=== PATIENT | female | born 1965 | race Caucasian/White ===

== ENCOUNTER 2016-05-10 17:15 | Inpatient (IN) | payer OTHER ==
[~2016-05-10] VITALS: Ht 167.6 cm; Wt 68.0 kg
[~2016-05-10 17:15] MED LIST: ALBU6.7H INH; DUONI NEB; GABA100C4 PO; IBUP800T23 PO; LEVO750T33 PO; MELO15 PO; METH4TAB6 PO
[2016-05-10 17:20] VITALS: RESP 38; O2SAT 100
[2016-05-10 17:22] VITALS: BP 205/91; PULSE 99; RESP 38; TEMP 98.3; O2SAT 95
[2016-05-10] MEDS ORDERED: methylPREDNISolone SOD SUCC 125 MG/2 ML VIAL IVP ONE (17:30)
[2016-05-10] MEDS ORDERED: SODIUM CHLORIDE 0.9% FLUSH 5 ML FLUSH IVF PRN (17:30)
[2016-05-10] MEDS: RESP: ALBUTEROL 2.5 MG/IPRATROPIUM 0.5 MG NEB (SCH) INH (17:33)
[2016-05-10 17:45] VITALS: O2SAT 100
--- NOTE | 2016-05-10 18:12 | PD ---
HPI Chief Complaint: Respiratory Distress Time Seen by Provider: 17:25 Travel History International Travel<30 days: No Contact w/Intl Traveler<30days: No Traveled to known affect area: No History of Present Illness HPI 51-year-old female came to the emergency room with history of shortness of breath progressively worsening over past 2 days. Patient is a smoker and recently had a trip to [place]. She has been told that she has COPD but patient did not take any inhalers for the shortness of breath. No history of fever or chills. Patient was tachypneic but oxygenating okay. She was hypertensive and seemed extremely anxious. [facility] Past Medical History Narrative Medical List of her past medical history is reviewed from the nursing note. Arthritis: Yes Asthma: Yes Blood Disorders: No Anxiety: No Depression: No Cancer: No Cardiovascular Problems: No Cerebrovascular Accident: Yes (history tia LAST ONE 2 YEARS AGO) Diminished Hearing: No Endocrine: No Genitourinary: Yes Immune Disorder: No Musculoskeletal: Yes (CHRONIC BACK PAIN) Neurologic: Yes Psychiatric: No Reproductive: No Respiratory: Yes ?: Not Menopausal: Yes Past Surgical History Appendectomy: Yes Hysterectomy: Yes Other Surgery: Yes (neck surgery AND BACK SURGERY) Social History Alcohol Use: Yes (SOCIAL) Tobacco Use: Yes (PPD) Substance Use: No Allergies-Medications (Allergen,Severity, Reaction): Coded Allergies: No Known Allergies (Verified , 05/10/16) Comments No known drug allergies. Reported Meds & Prescriptions Reported Meds & Active Scripts Active No Active Prescriptions or Reported Medications Narrative Medication List of her home medications reviewed from the nursing note. Review of Systems Except as stated in HPI: all other systems reviewed are Neg Physical Exam Narrative GENERAL: Awake, alert, anxious, moderate distress SKIN: Warm and dry. HEAD: Atraumatic. Normocephalic. EYES: Pupils equal and round. No scleral icterus. No injection or drainage. ENT: No nasal bleeding or discharge. Mucous membranes pink and moist. NECK: Trachea midline. No JVD. CARDIOVASCULAR: Regular rate and rhythm. No murmur appreciated. RESPIRATORY: No accessory muscle use. Bilateral end expiratory wheeze GASTROINTESTINAL: Abdomen soft, non-tender, nondistended. Hepatic and splenic margins not palpable. MUSCULOSKELETAL: No obvious deformities. No clubbing. No cyanosis. No edema. NEUROLOGICAL: Awake and alert. No obvious cranial nerve deficits. Motor grossly within normal limits. Normal speech. PSYCHIATRIC: Extremely anxious Data Data Last Documented VS Vital Signs Date Time Temp Pulse Resp B/P Pulse Ox O2 Delivery O2 Flow Rate FiO2 05/10/16 17:45 100 Nasal Cannula 2.00 05/10/16 17:22 98.3 99 38 205/91 Orders Complete Blood Count With Diff (05/10/16 17:25) Basic Metabolic Panel (Bmp) (05/10/16 17:25) B-Type Natriuretic Peptide (05/10/16 17:25) Magnesium (Mg) (05/10/16 17:25) Ckmb (Isoenzyme) Profile (05/10/16 17:25) Troponin I (05/10/16 17:25) Iv Access Insert/Monitor (05/10/16 17:25) Ecg Monitoring (05/10/16 17:25) Oximetry (05/10/16 17:25) Oxygen Administration (05/10/16 17:25) Chest, Single Ap (05/10/16 17:25) Sodium Chloride 0.9% Flush (Ns Flush) (05/10/16 17:30) Methylprednisolone So Succ Inj (Solumedr (05/10/16 17:30) Albuterol-Ipratropium Neb (Duoneb Neb) (05/10/16 17:30) Arterial Blood Gas (Abg) (05/10/16 ) Lorazepam Inj (Ativan Inj) (05/10/16 18:30) Drug Screen, Random Urine (05/10/16 18:17) Ct Pulmonary Angiogram (05/10/16 ) CKMB (05/10/16 18:21) CKMB% (05/10/16 18:21) Iohexol 350 Inj (Omnipaque 350 Inj) (05/10/16 21:54) Levofloxacin 750 Mg Premix Inj (Levaquin (05/10/16 22:30) Admit Order (Ed Use Only) (05/10/16 22:26) Labs Laboratory Tests Test 05/10/16 05/10/16 05/10/16 17:35 18:21 18:51 Blood Gas Puncture Site RT RADIAL Blood Gas Patient Temperature 98.6 Blood Gas HCO3 18 mmol/L Blood Gas Base Excess -2.7 mmol/L Blood Gas Oxygen Saturation 94 % Arterial Blood pH 7.69 Arterial Blood Partial 15 mmHg Pressure CO2 Arterial Blood Partial 80 mmHG Pressure O2 Arterial Blood Oxygen Content 19.4 Vol % Arterial Blood 2.5 % Carboxyhemoglobin Arterial Blood Methemoglobin 1.7 % Blood Gas Hemoglobin 14.6 G/DL Oxygen Delivery Device NASAL CANNULA Blood Gas Liter Flow 2 L/M White Blood Count 16.8 TH/MM3 Red Blood Count 4.50 MIL/MM3 Hemoglobin 14.0 GM/DL Hematocrit 41.2 % Mean Corpuscular Volume 91.6 FL Mean Corpuscular Hemoglobin 31.2 PG Mean Corpuscular Hemoglobin 34.0 % Concent Red Cell Distribution Width 12.8 % Platelet Count 287 TH/MM3 Mean Platelet Volume 7.0 FL Neutrophils (%) (Auto) 73.7 % Lymphocytes (%) (Auto) 19.1 % Monocytes (%) (Auto) 6.6 % Eosinophils (%) (Auto) 0.3 % Basophils (%) (Auto) 0.3 % Neutrophils # (Auto) 12.4 TH/MM3 Lymphocytes # (Auto) 3.2 TH/MM3 Monocytes # (Auto) 1.1 TH/MM3 Eosinophils # (Auto) 0.0 TH/MM3 Basophils # (Auto) 0.1 TH/MM3 CBC Comment DIFF FINAL Differential Comment Sodium Level 137 MEQ/L Potassium Level 3.9 MEQ/L Chloride Level 104 MEQ/L Carbon Dioxide Level 21.4 MEQ/L Anion Gap 12 MEQ/L Blood Urea Nitrogen 13 MG/DL Creatinine 0.99 MG/DL Estimat Glomerular Filtration 59 ML/MIN Rate Random Glucose 88 MG/DL Calcium Level 10.1 MG/DL Magnesium Level 2.0 MG/DL Total Creatine Kinase 171 U/L Creatine Kinase MB LESS THAN 0.5 NG/ML Troponin I LESS THAN 0.02 NG/ML B-Type Natriuretic Peptide 8 PG/ML Urine Opiates Screen NEG Urine Barbiturates Screen NEG Urine Amphetamines Screen NEG Urine Benzodiazepines Screen NEG Urine Cocaine Screen NEG Urine Cannabinoids Screen NEG MDM Medical Decision Making Medical Screen Exam Complete: Yes Emergency Medical Condition: Yes Medical Record Reviewed: Yes Differential Diagnosis COPD exacerbation, PE, pneumonia Narrative Course 6:11 PM patient was given 3 duo nebs [id number], IV Solu-Medrol bolus. Blood gas is suggestive of respiratory alkalosis and hyperventilation. Awaiting for the blood test results and chest x-ray. I will give her 1 mg of IV Ativan and urine drug screen as needed in addition. 7:20 PM awaiting for the blood test result and the CAT scan. Case has been signed over to the oncoming ER physician. Critical Care Narrative Aggregate critical care time was 30 minutes. Time to perform other separately billable procedures was not included in the critical care time. My time did not include minutes spent treating any other patients simultaneously or on activities that did not directly contribute to the patient's treatment. The services I provided to this patient were to treat and/or prevent clinically significant deterioration that could result in: Respiratory distress I provided critical care services requiring my management, as noted below: Chart data review, documentation time, medication orders and management, vital sign assessments/reviewing monitor data, ordering and reviewing lab tests, ordering and interpreting/reviewing x-rays and diagnostic studies, care of the patient and discussion of the patient with the admitting physicians. Procedures EKG Prior to Arrival: No Diagnosis Primary Impression: Respiratory distress Additional Impression: Acute exacerbation of COPD with asthma Scripts No Active Prescriptions or Reported Meds Jayden Schneider MD May 10, 2016 18:12
[2016-05-10 18:13] LABS: BLOOD GAS BASE EXCESS -2.7 mmol/L (-2-2); BLOOD GAS CARBOXYHEMOGLOBIN 2.5 % (0-4); BLOOD GAS HCO3 18 mmol/L (22-26); BLOOD GAS METHEMOGLOBIN 1.7 % (0-2); BLOOD GAS O2 HGB SATURATION 94 % (90-100); BLOOD GAS OXYGEN CONTENT 19.4 Vol % (12.0-20.0); BLOOD GAS PCO2 15 mmHg (38-42); BLOOD GAS PO2 80 mmHG (61-120); BLOOD GAS TOTAL HGB 14.6 G/DL (12.0-16.0); TEMP CORR TO 98.6
[2016-05-10 18:14] LABS: CRITICAL VALUE YES; DRAW SITE RT RADIAL; LITER FLOW 2 L/M; NUMBER OF ARTERIAL PUNCTURES 1; OXYGEN DEVICE NASAL CANNULA; STAT YES; ULNAR PULSE Y
--- NOTE | 2016-05-10 18:19 | RADRPT ---
EXAM DATE/TIME: 05/10/2016 17:54 [facility] COMPARISON: No previous studies available for comparison. INDICATIONS : Shortness of breath for 1 week MEDICAL HISTORY : None. SURGICAL HISTORY : None. ENCOUNTER: Initial ACUITY: 1 week PAIN SCORE: 0/10 LOCATION: Bilateral chest FINDINGS: A single view of the chest demonstrates the lungs to be symmetrically aerated without evidence of mas s, infiltrate or effusion. The cardiomediastinal contours are unremarkable. Osseous structures are intact. CONCLUSION: No acute disease. Nathan Weems MD on May 10, 2016 at 18:18 Board Certified Radiologist. This report was verified electronically.
[2016-05-10] MEDS ORDERED: LORazepam 2 MG/ML VIAL IV PUSH ONE (18:30)
[2016-05-10 18:43] LABS: AUTOMATED NEUTROPHIL # 12.4 TH/MM3 (1.8-7.7); BASOPHIL # 0.1 TH/MM3 (0-0.2); BASOPHIL % 0.3 % (0.0-2.0); EOSINOPHIL % 0.3 % (0.0-4.0); HEMATOCRIT 41.2 % (35.0-46.0); HEMO FLAGS DIFF FINAL; LYMPH % 19.1 % (9.0-44.0); LYMPHOCYTE # 3.2 TH/MM3 (1.0-4.8); MEAN CELL VOLUME 91.6 FL (80.0-100.0); MEAN CORPUSCULAR HEMOGLOBIN 31.2 PG (27.0-34.0); MONO % 6.6 % (0.0-8.0); NEUT % 73.7 % (16.0-70.0); PLATELET COUNT 287 TH/MM3 (150-450); RED CELL DISTRIBUTION WIDTH 12.8 % (11.6-17.2); WHITE BLOOD COUNT 16.8 TH/MM3 (4.0-11.0)
[2016-05-10 19:05] LABS: ANION GAP 12 MEQ/L (5-15); BICARBONATE 21.4 MEQ/L (21.0-32.0); BLOOD UREA NITROGEN 13 MG/DL (7-18); CHLORIDE 104 MEQ/L (98-107); CREATINE KINASE 171 U/L (26-192); GLOMERULAR FILTRATION RATE 59 ML/MIN (>89); SODIUM (NA) 137 MEQ/L (136-145)
[2016-05-10 19:08] LABS: POTASSIUM 3.9 MEQ/L (3.5-5.1)
[2016-05-10 19:20] LABS: CKMB LESS THAN 0.5 NG/ML (0.5-3.6)
[2016-05-10 19:24] LABS: AMPHETAMINE, URINE NEG (NEG); BARBITURATES, URINE NEG (NEG); COCAINE, URINE NEG (NEG)
[2016-05-10] MEDS ORDERED: IOHEXOL 350 MG/ML 10 ML VIAL (for RAD DIAG) IV ONE (21:54)
--- NOTE | 2016-05-10 22:07 | RADRPT ---
EXAM DATE/TIME: 05/10/2016 21:49 [facility] COMPARISON: CHEST SINGLE AP, May 10, 2016, 17:54. INDICATIONS : Chest pain and SOB. IV CONTRAST: 50 cc Omnipaque 350 (iohexol) IV RADIATION DOSE: 6.04 CTDIvol (mGy) MEDICAL HISTORY : Cerebrovascular disease. SURGICAL HISTORY : Appendectomy. Hysterectomy. ENCOUNTER: Initial ACUITY: 1 week PAIN SCALE: 5/10 LOCATION: chest TECHNIQUE: Volumetric scanning of the chest was performed using a pulmonary embolism protocol MIP images were re constructed. Using automated exposure control and adjustment of the mA and/or kV according to patien t size, radiation dose was kept as low as reasonably achievable to obtain optimal diagnostic quality images. FINDINGS: Calcified granuloma left upper lobe posteriorly measuring 3.1 mm. There are scattered tiny cavitary l esions with surrounding groundglass infiltrates within both upper lobes, patchy groundglass cavitary infiltrate in the lingula and right middle lobe, and respiratory motion artifact limits evaluation of the lower lobes. There is right hilar adenopathy, subcarinal adenopathy up to 1.4 cm and mildly prom inent left hilar lymph node. There is no definite evidence of pulmonary embolism the evaluation of th e lower lobes subsegmental branches is limited secondary to motion artifact. There are numerous cysti c air spaces within the upper lobes identified. CONCLUSION: 1. No definite PE. 2. Scattered cavitary infiltrates bilaterally Nathan Weems MD on May 10, 2016 at 22:02 Board Certified Radiologist. This report was verified electronically.
[2016-05-10] MEDS ORDERED: NALOXONE HCL 0.4 MG/ML AMP IV PRN (22:30)
[2016-05-10] MEDS ORDERED: LEVOFLOXACIN 750 MG PREMIX INJ 150 ML IV ONE (22:30)
[2016-05-10] MEDS ORDERED: RESP: ALBUTEROL 2.5 MG/IPRATROPIUM 0.5 MG NEB (PRN) NEB (22:30)
[2016-05-10] MEDS ORDERED: SODIUM CHLORIDE 0.9% FLUSH 5 ML FLUSH FLUSH PRN (22:30)
--- NOTE | 2016-05-10 23:10 | PD ---
Physical Exam Narrative GENERAL: Well-nourished, well-developed patient. SKIN: Warm and dry. HEAD: Normocephalic and atraumatic. EYES: No injection or drainage. ENT: No nasal drainage noted. NECK: Supple, trachea midline. CARDIOVASCULAR: Regular rate and rhythm RESPIRATORY: Mild increased effort. No accessory muscle use. NEUROLOGICAL: Awake and alert. Motor and sensory grossly within normal limits. Normal speech. Data Data Last Documented VS Vital Signs Date Time Temp Pulse Resp B/P Pulse Ox O2 Delivery O2 Flow Rate FiO2 05/10/16 17:45 100 Nasal Cannula 2.00 05/10/16 17:22 98.3 99 38 205/91 Orders Complete Blood Count With Diff (05/10/16 17:25) Basic Metabolic Panel (Bmp) (05/10/16 17:25) B-Type Natriuretic Peptide (05/10/16 17:25) Magnesium (Mg) (05/10/16 17:25) Ckmb (Isoenzyme) Profile (05/10/16 17:25) Troponin I (05/10/16 17:25) Iv Access Insert/Monitor (05/10/16 17:25) Ecg Monitoring (05/10/16 17:25) Oximetry (05/10/16 17:25) Oxygen Administration (05/10/16 17:25) Chest, Single Ap (05/10/16 17:25) Sodium Chloride 0.9% Flush (Ns Flush) (05/10/16 17:30) Methylprednisolone So Succ Inj (Solumedr (05/10/16 17:30) Albuterol-Ipratropium Neb (Duoneb Neb) (05/10/16 17:30) Arterial Blood Gas (Abg) (05/10/16 ) Lorazepam Inj (Ativan Inj) (05/10/16 18:30) Drug Screen, Random Urine (05/10/16 18:17) Ct Pulmonary Angiogram (05/10/16 ) CKMB (05/10/16 18:21) CKMB% (05/10/16 18:21) Iohexol 350 Inj (Omnipaque 350 Inj) (05/10/16 21:54) Levofloxacin 750 Mg Premix Inj (Levaquin (05/10/16 22:30) Admit Order (Ed Use Only) (05/10/16 22:26) Labs Laboratory Tests Test 05/10/16 05/10/16 05/10/16 17:35 18:21 18:51 Blood Gas Puncture Site RT RADIAL Blood Gas Patient Temperature 98.6 Blood Gas HCO3 18 mmol/L Blood Gas Base Excess -2.7 mmol/L Blood Gas Oxygen Saturation 94 % Arterial Blood pH 7.69 Arterial Blood Partial 15 mmHg Pressure CO2 Arterial Blood Partial 80 mmHG Pressure O2 Arterial Blood Oxygen Content 19.4 Vol % Arterial Blood 2.5 % Carboxyhemoglobin Arterial Blood Methemoglobin 1.7 % Blood Gas Hemoglobin 14.6 G/DL Oxygen Delivery Device NASAL CANNULA Blood Gas Liter Flow 2 L/M White Blood Count 16.8 TH/MM3 Red Blood Count 4.50 MIL/MM3 Hemoglobin 14.0 GM/DL Hematocrit 41.2 % Mean Corpuscular Volume 91.6 FL Mean Corpuscular Hemoglobin 31.2 PG Mean Corpuscular Hemoglobin 34.0 % Concent Red Cell Distribution Width 12.8 % Platelet Count 287 TH/MM3 Mean Platelet Volume 7.0 FL Neutrophils (%) (Auto) 73.7 % Lymphocytes (%) (Auto) 19.1 % Monocytes (%) (Auto) 6.6 % Eosinophils (%) (Auto) 0.3 % Basophils (%) (Auto) 0.3 % Neutrophils # (Auto) 12.4 TH/MM3 Lymphocytes # (Auto) 3.2 TH/MM3 Monocytes # (Auto) 1.1 TH/MM3 Eosinophils # (Auto) 0.0 TH/MM3 Basophils # (Auto) 0.1 TH/MM3 CBC Comment DIFF FINAL Differential Comment Sodium Level 137 MEQ/L Potassium Level 3.9 MEQ/L Chloride Level 104 MEQ/L Carbon Dioxide Level 21.4 MEQ/L Anion Gap 12 MEQ/L Blood Urea Nitrogen 13 MG/DL Creatinine 0.99 MG/DL Estimat Glomerular Filtration 59 ML/MIN Rate Random Glucose 88 MG/DL Calcium Level 10.1 MG/DL Magnesium Level 2.0 MG/DL Total Creatine Kinase 171 U/L Creatine Kinase MB LESS THAN 0.5 NG/ML Troponin I LESS THAN 0.02 NG/ML B-Type Natriuretic Peptide 8 PG/ML Urine Opiates Screen NEG Urine Barbiturates Screen NEG Urine Amphetamines Screen NEG Urine Benzodiazepines Screen NEG Urine Cocaine Screen NEG Urine Cannabinoids Screen NEG MDM Supervised Visit with TEJA: No Interpretation(s) CBC & BMP Diagram 05/10/16 18:21 Last 24 hours Impressions Chest X-Ray 05/10/16 1725 Signed Impressions: Service Date/Time: Tuesday, May 10, 2016 17:54 - CONCLUSION: No acute disease. Nathan Weems MD CT Angiography 05/10/16 0000 Signed Impressions: Service Date/Time: Tuesday, May 10, 2016 21:49 - CONCLUSION: 1. No definite PE. 2. Scattered cavitary infiltrates bilaterally Nathan Weems MD Narrative Course Signed over to me to follow CAT scan and reevaluate. CT with bilateral infiltrates. Levaquin given. Patient agrees to admission Physician Communication Physician Communication dr franks agrees to admit Diagnosis Primary Impression: Respiratory distress Additional Impressions: Acute exacerbation of COPD with asthma Upper respiratory infection Qualified Code: J06.9 - Upper respiratory tract infection, unspecified type Admitting Information Admitting Physician Requests: Admit Scripts No Active Prescriptions or Reported Meds Lisa Sawyer MD May 10, 2016 23:10
[2016-05-10 23:27] VITALS: BP 95/65; PULSE 89; RESP 18; O2SAT 94
[2016-05-11] VITALS (9 sets, daily range): BP systolic 101–118; BP diastolic 56–71; PULSE 76–88; RESP 18–22; TEMP 97.7–99; O2SAT 93–98
[2016-05-11] MEDS ORDERED: cloNIDine HCL 0.1 MG TAB PO PRN (02:15)
[2016-05-11 05:25] LABS: AUTOMATED NEUTROPHIL # 9.4 TH/MM3 (1.8-7.7); BASOPHIL % 0.1 % (0.0-2.0); HEMATOCRIT 37.6 % (35.0-46.0); HEMO FLAGS DIFF FINAL; LYMPH % 7.7 % (9.0-44.0); LYMPHOCYTE # 0.8 TH/MM3 (1.0-4.8); MEAN CELL VOLUME 90.6 FL (80.0-100.0); MEAN CORPUSCULAR HEMOGLOBIN 31.1 PG (27.0-34.0); MEAN CORPUSCULAR HGB CONC 34.3 % (32.0-36.0); MONO % 1.9 % (0.0-8.0); NEUT % 90.3 % (16.0-70.0); PLATELET COUNT 301 TH/MM3 (150-450); RED BLOOD COUNT 4.15 MIL/MM3 (4.00-5.30); WHITE BLOOD COUNT 10.4 TH/MM3 (4.0-11.0)
[2016-05-11 05:51] LABS: POTASSIUM 4.2 MEQ/L (3.5-5.1)
[2016-05-11] MEDS ORDERED: methylPREDNISolone SOD SUCC 40 MG/1 ML VIAL IV PUSH SCH (06:00)
[2016-05-11] MEDS: PANTOPRAZOLE SOD 40 MG DELAYED RELEASE TAB PO SCH (08:10)
[2016-05-11] MEDS: SODIUM CHLORIDE 0.9% FLUSH 5 ML FLUSH FLUSH SCH ×2 (08:10→20:42)
[2016-05-11] MEDS: ENOXAPARIN SODIUM 40 MG/0.4 ML SYRINGE SQ SCH (08:10)
--- NOTE | 2016-05-11 09:33 | HHI.HP ---
HPI Service [facility] Hospitalists Primary Care Physician No Primary Care Physician Admission Diagnosis asthma exacerbation, pneumonia Diagnoses: Chief Complaint: sob/cough Travel History International Travel<30 Days: No Contact w/Intl Traveler <30 Da: No Traveled to Known Affected Are: No Sepsis Criteria SIRS Criteria (2 or more): Heart rate over 90, RR > 20 or PaCO2 < 32, WBC > 18657, < 4000 or > 10% bands Sepsis Criteria (SIRS+source): Infect source susp/known Criteria Outcome: Meets sepsis criteria History of Present Illness This is a 51-year-old female with past medical history significant for asthma, chronic back pain, tobacco abuse who presents to [facility] complaining of worsening shortness of breath and cough for the past week. The patient states that she recently came back from [place] from visiting family and became very short of breath up to the point where she could not breathe. The patient also states that she has a cough which has been initially dry and now slightly productive which has been also getting worst throughout the days. Patient states all her symptoms started prior to visiting [place]. The patient denies fevers or chills but she admits to feeling hot and cold and having sweats. Denies any weight loss, denies hemoptysis, denies diarrhea but states she always has loose stools. Patient also complains of abdominal pain localized in the gastric region which is worst when she coughs. The patient was seen in the emergency department and given Solu-Medrol 125 mg IV once as well as DuoNeb treatments. Patient states she is still coughing frequently and very wheezy but shortness of breath has improved. Review of Systems Other As per history of present illness, other systems reviewed by me and negative Past Family Social History Past Medical History 1. Osteoarthritis. 2. Asthma. 3. History of multiple TIAs, last one 2 years ago 4. Chronic back pain Past Surgical History 1. Appendectomy. 2. Hysterectomy. 3. Status post facet block lumbar/sacral L5, S1. LVL left 08/19/10. 4. Status post left L5-S1 microdiscectomy on 09/14/09 Reported Medications None Allergies: Coded Allergies: No Known Allergies (Verified , 05/10/16) Active Ordered Medications Current Medications Medications (Trade) Dose Ordered Sig/Sarah Route Start Time Stop Time Status Last Admin (NS Flush) 2 ml UNSCH PRN FLUSH 05/10/16 22:30 (NS Flush) 2 ml BID FLUSH 05/11/16 09:00 05/11/16 08:10 (Lovenox Inj) 40 mg Q24H SQ 05/11/16 09:00 05/11/16 08:10 Naloxone HCl 0.4 mg 0.4 mg UNSCH PRN IV 05/10/16 22:30 (Levaquin 750 Mg Premix Inj) 150 ml @ 100 mls/hr Q24H IV 05/11/16 22:00 (SoluMEDROL INJ) 40 mg Q6HR IV PUSH 05/11/16 06:00 05/11/16 04:33 (Protonix) 40 mg DAILY PO 05/11/16 09:00 05/11/16 08:10 (Pneumovax-23 Inj) 25 mcg ONCE ONCE IM 05/12/16 10:00 05/12/16 10:01 (Flu (Quadrivalent) Vaccine Inj) 0.5 ml ONCE ONCE IM 05/12/16 10:00 05/12/16 10:01 Family History Since father from complications of diabetes and metastatic cancer from unknown primary at age 84. Patient's brother has hypertension and diabetes. Patient's mother has end-stage COPD. Social History Patient states she drinks alcohol occasionally on social occasions. Patient smoked one pack per day. Physical Exam Vital Signs Vital Signs Date Time Temp Pulse Resp B/P Pulse Ox O2 Delivery O2 Flow Rate FiO2 05/11/16 04:00 99.0 76 20 110/62 93 05/11/16 02:10 86 05/11/16 00:00 98.8 82 22 101/56 94 05/10/16 23:27 89 18 95/65 94 Nasal Cannula 2 05/10/16 17:45 100 Nasal Cannula 2.00 05/10/16 17:22 98.3 99 38 205/91 95 05/10/16 17:20 100 Nasal Cannula 2 05/10/16 17:20 38 100 Nasal Cannula 2 Physical Exam GENERAL: This is a thin, well-developed patient, in mild respiratory distress due to cough and wheezing. SKIN: No rashes, ecchymoses or lesions. Cool and dry. HEAD: Atraumatic. Normocephalic. No temporal or scalp tenderness. EYES: Pupils equal round and reactive. Extraocular motions intact. No scleral icterus. No injection or drainage. ENT: Nose without bleeding, purulent drainage or septal hematoma. Throat without erythema, tonsillar hypertrophy or exudate. Uvula midline. Airway patent. NECK: Trachea midline. No JVD or lymphadenopathy. Supple, nontender, no meningeal signs. CARDIOVASCULAR: Regular rate and rhythm without murmurs, gallops, or rubs. RESPIRATORY: There is bilateral diffuse expiratory wheezing. Some rhonchi auscultated bilaterally as well. No rales. GASTROINTESTINAL: Abdomen soft, non-tender, nondistended. No hepato-splenomegaly , or palpable masses. No guarding. MUSCULOSKELETAL: Extremities without clubbing, cyanosis, or edema. No joint tenderness, effusion, or edema noted. No calf tenderness. Negative Homans sign bilaterally. NEUROLOGICAL: Awake and alert. Cranial nerves II through XII intact. Motor and sensory grossly within normal limits. Five out of 5 muscle strength in all muscle groups. Normal speech. Laboratory Laboratory Tests Test 05/10/16 05/10/16 05/10/16 05/11/16 17:35 18:21 18:51 05:02 Blood Gas Puncture Site RT RADIAL Blood Gas Patient Temperature 98.6 Blood Gas HCO3 18 Blood Gas Base Excess -2.7 Blood Gas Oxygen Saturation 94 Arterial Blood pH 7.69 Arterial Blood Partial 15 Pressure CO2 Arterial Blood Partial 80 Pressure O2 Arterial Blood Oxygen Content 19.4 Arterial Blood 2.5 Carboxyhemoglobin Arterial Blood Methemoglobin 1.7 Blood Gas Hemoglobin 14.6 Oxygen Delivery Device NASAL CANNULA Blood Gas Liter Flow 2 White Blood Count 16.8 10.4 Red Blood Count 4.50 4.15 Hemoglobin 14.0 12.9 Hematocrit 41.2 37.6 Mean Corpuscular Volume 91.6 90.6 Mean Corpuscular Hemoglobin 31.2 31.1 Mean Corpuscular Hemoglobin 34.0 34.3 Concent Red Cell Distribution Width 12.8 13.0 Platelet Count 287 301 Mean Platelet Volume 7.0 7.1 Neutrophils (%) (Auto) 73.7 90.3 Lymphocytes (%) (Auto) 19.1 7.7 Monocytes (%) (Auto) 6.6 1.9 Eosinophils (%) (Auto) 0.3 0.0 Basophils (%) (Auto) 0.3 0.1 Neutrophils # (Auto) 12.4 9.4 Lymphocytes # (Auto) 3.2 0.8 Monocytes # (Auto) 1.1 0.2 Eosinophils # (Auto) 0.0 0.0 Basophils # (Auto) 0.1 0.0 CBC Comment DIFF FINAL DIFF FINAL Differential Comment Sodium Level 137 137 Potassium Level 3.9 4.2 Chloride Level 104 105 Carbon Dioxide Level 21.4 23.0 Anion Gap 12 9 Blood Urea Nitrogen 13 11 Creatinine 0.99 0.79 Estimat Glomerular Filtration 59 76 Rate Random Glucose 88 123 Calcium Level 10.1 9.4 Magnesium Level 2.0 Total Creatine Kinase 171 Creatine Kinase MB LESS THAN 0.5 Troponin I LESS THAN 0.02 B-Type Natriuretic Peptide 8 Urine Opiates Screen NEG Urine Barbiturates Screen NEG Urine Amphetamines Screen NEG Urine Benzodiazepines Screen NEG Urine Cocaine Screen NEG Urine Cannabinoids Screen NEG Result Diagram: 05/11/16 0502 05/11/16 0502 Imaging Last Impressions Chest X-Ray 05/10/16 1725 Signed Impressions: Service Date/Time: Tuesday, May 10, 2016 17:54 - CONCLUSION: No acute disease. Nathan Weems MD CT Angiography 05/10/16 0000 Signed Impressions: Service Date/Time: Tuesday, May 10, 2016 21:49 - CONCLUSION: 1. No definite PE. 2. Scattered cavitary infiltrates bilaterally Nathan Weems MD Reviewed by ok Septic Shock Reassessment Heart: Regular rate and rhythm Lungs: Other (diffuse bilateral wheezing, scattered ronchi) Skin: Warm Peripheral Pulses: Bounding Right Radial Bounding Left Radial Bounding Left Dorsalis Pedis Bounding Right Posterior Tibial Capillary Refill: <2 seconds Assessment and Plan Problem List: (1) Acute exacerbation of COPD with asthma ICD Code: J44.1 Status: Acute Plan: 49-year-old female with history of tobacco abuse presents with worsening shortness of breath and cough. Chest x-ray did not show any infiltrates, CTA ruled out PE but showed some cavitary infiltrates. On exam the patient has diffuse expiratory wheezing bilaterally. Admit the patient to the medical floor. Continue IV Solu-Medrol at 60 mg IV every 6 hours. Continue bronchodilators. I will start the patient on inhaled steroids. I will Rx Robitussin-DM for cough. (2) PNA (pneumonia) ICD Code: J18.9 Status: Acute Plan: Place on IV antibioticscontinue IV Levaquin. Check Legionella urine antigen, pneumococcal urine antigen. (3) Sepsis ICD Code: A41.9 Status: Acute Plan: Present on admission. On presentation to the emergency department patient had a leukocytosis of 16,000, respiratory rate of 20 and heart rate in the 100s. I will place the patient on IV normal saline. Continue to monitor vital signs, WBC. (4) Leukocytosis ICD Code: D72.829 Status: Acute Plan: WBC 16,000 on presentation, trending down. Continue to monitor CBC with differential. Elevated likely secondary to sepsis due to COPD exacerbation/ pneumonia. (5) Respiratory distress ICD Code: R06.00 Status: Acute Plan: Due to COPD exacerbation/pneumonia. Respiratory distress much improved. Patient still with significant cough and wheezing. Continue to monitor vital signs and O2 sats. (6) Hyperglycemia ICD Code: R73.9 Status: Acute Plan: Likely steroid-induced. Blood glucose on presentation was 88, now 123. Check hemoglobin A1c. I will place the patient on SSI with insulin NovoLog. (7) Chronic back pain ICD Code: M54.9 Status: Acute Plan: Patient has history of neck and back surgery. Complains of back pain which is chronic. I will place the patient on Tylenol and Lortab as needed. Assessment and Plan GI prophylaxis: PPI DVT prophylaxis: SCDs, Lovenox subcutaneous. Code Status Full code Discussed Condition With RN, patient Physician Certification 2 Midnight Certification Type: Admission for Inpatient Services Order for Inpatient Services The services are ordered in accordance with Medicare regulations or non- Medicare payer requirements, as applicable. In the case of services not specified as inpatient-only, they are appropriately provided as inpatient services in accordance with the 2-midnight benchmark. Estimated LOS (days): 2 days is the estimated time the patient will need to remain in the hospital, assuming treatment plan goals are met and no additional complications. Post-Hospital Plan: Not yet determined Problem Qualifiers (1) PNA (pneumonia): Qualified Code: J18.9 - Pneumonia of both lungs due to infectious organism, unspecified part of lung (2) Sepsis: Qualified Code: A41.9 - Sepsis, due to unspecified organism (3) Leukocytosis: Qualified Code: D72.829 - Leukocytosis, unspecified type (4) Chronic back pain: Qualified Code: M54.5 - Chronic midline low back pain without sciatica Dylan Tomlinson MD May 11, 2016 09:33
[2016-05-11] MEDS: RESP: ALBUTEROL 2.5 MG/IPRATROPIUM 0.5 MG NEB (SCH) NEB ×3 (10:08→21:12)
[2016-05-11] MEDS ORDERED: ACETAMINOPHEN/HYDROcodone 325 MG/5 MG TAB PO PRN (10:30)
[2016-05-11] MEDS: SODIUM CHLOR 0.9% 1000 ML INJ 1,000 ML IV SCH ×2 (11:25→22:25)
[2016-05-11] MEDS: methylPREDNISolone SOD SUCC 125 MG/2 ML VIAL IV PUSH SCH ×3 (11:25→22:24)
[2016-05-11] MEDS: guaiFENesin/DEXTROMETHORPHAN 200 MG/20 MG/10 ML CUP PO PRN ×3 (13:56→22:24)
[2016-05-11 14:26] LABS: LACTIC ACID GHOST NOT REPORTABLE
--- NOTE | 2016-05-11 19:06 | MB ---
cc: TALITA ADAN MD DATE OF CONSULTATION: 05/11/[address] Rodriguez REASON FOR CONSULTATION COPD exacerbation. HISTORY OF PRESENT ILLNESS Ms. Elizalde is a 51-year-old white female with longstanding history of COPD. She has not been using any medication. She was prescribed a nebulizer machine a few years ago, but she has stopped using it. She has history of smoking, continues to smoke one pack of cigarettes a day. The patient recently went to [place] and she had contact with family members who were sick. She came back. She was feeling more short of breath. In fact, she is not feeling well for one week. She has a cough, mild nausea. No fever or chills. No chest pain. With these symptoms, she came to the hospital. She had a workup done. She had a CTA of the chest done which does not show any pulmonary embolism. It shows scattered cavitary infiltrates bilaterally. Her WBC count is 10.84, hemoglobin 12.9, hematocrit 37.6, MCV 90, platelet count 301, sodium 137, potassium 4.2, chloride 105, CO2 23, BUN 11, creatinine 0.79, lactic acid level 2.4, blood gas - pH 7.69, pCO2 15, pO2 80, bicarb 18, saturation 98% on 2 liters nasal cannula. Blood cultures so far are negative. Influenza antigen is negative. Legionella and pneumococcal urine antigen are negative. PAST MEDICAL HISTORY 1. History of chronic back pain and neck pain 2. History of COPD. 3. History of hysterectomy, 4. Appendectomy. MEDICATIONS She is not taking medication at home. Currently she is taking 1. Nicotine patch. 2. Levaquin 750 mg a day. 3. Symbicort 160/4.5 two puffs twice a day, 4. Solu-Medrol 60 mg q 6-hour. 5. Robitussin DM cough syrup 10 mL q. 4-hour. 6. Lovenox 40 mg a day 7. Protonix 40 mg a day 8. Albuterol Atrovent nebulizer treatment. ALLERGIES NO KNOWN DRUG ALLERGIES. SOCIAL HISTORY She has a long history of smoking since age 12 and continues to smoke more than one pack of cigarettes a day. She drinks 2-3 times a week. No drug use. 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 FAMILY HISTORY She is for the second time now for six years. She has one daughter. REVIEW OF SYSTEMS She denies any weight loss. Normally she is active. No headache or dizziness. No DVT or pulmonary embolism, no seizure, stroke or epilepsy. PHYSICAL EXAMINATION GENERAL: Well built, well-nourished female mildly short of breath and discomfort because of persistent cough. VITAL SIGNS: Blood pressure 108/65, heart rate 81, respirations 20, temperature 97.7 HEENT: Pupils are equal and reactive to light. Oral mucosa normal. No thrush. NECK: Supple. No jugular venous distention. CHEST: Air entry equal bilaterally. Bilateral expiratory rhonchi. CARDIOVASCULAR: S1, S2 normal. ABDOMEN: Soft, nondistended. Bowel sounds are present EXTREMITIES: No edema. CARDIAC SURGEON: Alert and oriented times three, no focal deficit. IMPRESSION 1. COPD exacerbation 2. Pneumonia 3. Nicotine use 4. Anxiety. 5. Chronic back pain. PLAN We will check her cultures. Continue antibiotic. Aerosol treatment with albuterol and Atrovent, IV Solu-Medrol, supplement her oxygen. Advised her to quit smoking. Once she gets better, we will check her pulmonary function study. Further treatment will depend on the course in the hospital. Thank you Dr. Rodriguez for this consultation. MD YONG Bolaños/ /5:29 PM /6:52 PM
[2016-05-11] MEDS: BUDESONIDE-FORMOTEROL 160/4.5 MCG INHALER INH SCH (20:40)
[2016-05-11] MEDS: LEVOFLOXACIN 750 MG PREMIX INJ 150 ML IV SCH (20:41)
[2016-05-12] VITALS (9 sets, daily range): BP systolic 108–136; BP diastolic 56–72; PULSE 84–92; RESP 20–22; TEMP 96.7–98.8; O2SAT 94–98
[2016-05-12] MEDS: RESP: ALBUTEROL 2.5 MG/IPRATROPIUM 0.5 MG NEB (SCH) NEB ×4 (03:52→22:19)
[2016-05-12] MEDS: guaiFENesin/DEXTROMETHORPHAN 200 MG/20 MG/10 ML CUP PO PRN (05:49)
[2016-05-12] MEDS: methylPREDNISolone SOD SUCC 125 MG/2 ML VIAL IV PUSH SCH ×4 (05:50→21:09)
[2016-05-12] MEDS: REMOVE OLD PATCH TD SCH (08:08)
[2016-05-12] MEDS: PANTOPRAZOLE SOD 40 MG DELAYED RELEASE TAB PO SCH (08:08)
[2016-05-12] MEDS: NICOTINE 21 MG/24 HR PATCH TD SCH (08:08)
[2016-05-12] MEDS: SODIUM CHLORIDE 0.9% FLUSH 5 ML FLUSH FLUSH SCH ×2 (08:08→21:07)
[2016-05-12] MEDS: ENOXAPARIN SODIUM 40 MG/0.4 ML SYRINGE SQ SCH (08:09)
[2016-05-12] MEDS: BUDESONIDE-FORMOTEROL 160/4.5 MCG INHALER INH SCH ×2 (08:10→21:07)
[2016-05-12] MEDS: BENZONATATE 100 MG CAP PO PRN ×2 (09:54→21:09)
[2016-05-12] MEDS ORDERED: INFLUENZA VIRUS VACCINE (QUADRIVALENT) 0.5 ML SYR IM ONE (10:00)
[2016-05-12] MEDS ORDERED: PNEUMOCOCCAL POLYVALENT INJ 25 MCG/0.5 ML SYR IM ONE (10:00)
[2016-05-12 10:42] LABS: AUTOMATED NEUTROPHIL # 17.4 TH/MM3 (1.8-7.7); BASOPHIL % 0.1 % (0.0-2.0); HEMATOCRIT 35.3 % (35.0-46.0); HEMO FLAGS DIFF FINAL; LYMPH % 3.4 % (9.0-44.0); LYMPHOCYTE # 0.6 TH/MM3 (1.0-4.8); MEAN CELL VOLUME 90.8 FL (80.0-100.0); MEAN CORPUSCULAR HEMOGLOBIN 31.2 PG (27.0-34.0); MEAN CORPUSCULAR HGB CONC 34.4 % (32.0-36.0); MONO % 3.4 % (0.0-8.0); NEUT % 93.1 % (16.0-70.0); PLATELET COUNT 320 TH/MM3 (150-450); RED BLOOD COUNT 3.88 MIL/MM3 (4.00-5.30); RED CELL DISTRIBUTION WIDTH 12.9 % (11.6-17.2); WHITE BLOOD COUNT 18.7 TH/MM3 (4.0-11.0)
[2016-05-12 10:59] LABS: ALKALINE PHOSPHATASE 76 U/L (45-117); ALT (GPT) 25 U/L (10-53); ANION GAP 14 MEQ/L (5-15); AST (GOT) 18 U/L (15-37); BICARBONATE 20.1 MEQ/L (21.0-32.0); BLOOD UREA NITROGEN 9 MG/DL (7-18); CHLORIDE 107 MEQ/L (98-107); GLOMERULAR FILTRATION RATE 61 ML/MIN (>89); POTASSIUM 3.3 MEQ/L (3.5-5.1); SODIUM (NA) 141 MEQ/L (136-145); TOTAL BILIRUBIN ADULT 0.3 MG/DL (0.2-1.0)
[2016-05-12] MEDS: SODIUM CHLOR 0.9% 1000 ML INJ 1,000 ML IV SCH ×3 (11:26→21:07)
--- NOTE | 2016-05-12 11:44 | HHI.PR ---
Subjective Remarks Patient states she does not feel good still coughing states sob is somewhat improved denies cp (+) BERMAN denies fevers/chills feels very anxious Objective Vitals Vital Signs Date Time Temp Pulse Resp B/P Pulse Ox O2 Delivery O2 Flow Rate FiO2 05/12/16 09:20 94 Nasal Cannula 2.00 05/12/16 08:00 98.6 92 22 108/56 94 05/12/16 04:00 98.8 88 20 118/72 96 05/12/16 00:00 98.0 86 20 114/68 97 05/11/16 20:00 98.2 85 20 114/68 96 05/11/16 16:00 98.4 84 20 116/68 94 05/11/16 15:46 98 21 05/11/16 12:00 98.2 88 18 118/71 93 I/O 05/11/16 05/11/16 05/11/16 05/12/16 05/12/16 05/12/16 07:00 15:00 23:00 07:00 15:00 23:00 Intake Total 420 ml 1375 ml 700 ml 240 ml Output Total 300 ml 1000 ml 450 ml Balance 120 ml 375 ml 700 ml -210 ml Intake Oral 220 ml 1200 ml 240 ml IV Total 200 ml 175 ml 700 ml Output Urine Total 300 ml 1000 ml 450 ml # Bowel Movements 0 0 0 Result Diagram: 05/12/16 1030 05/12/16 1030 Imaging Last Impressions Chest X-Ray 05/10/16 1725 Signed Impressions: Service Date/Time: Tuesday, May 10, 2016 17:54 - CONCLUSION: No acute disease. Nathan Weems MD CT Angiography 05/10/16 0000 Signed Impressions: Service Date/Time: Tuesday, May 10, 2016 21:49 - CONCLUSION: 1. No definite PE. 2. Scattered cavitary infiltrates bilaterally Nathan Weems MD Objective Remarks GENERAL: This is a thin, well-developed patient, in mild respiratory distress due to cough and wheezing. SKIN: No rashes, ecchymoses or lesions. Cool and dry. HEAD: Atraumatic. Normocephalic. No temporal or scalp tenderness. EYES: Pupils equal round and reactive. Extraocular motions intact. No scleral icterus. No injection or drainage. ENT: Nose without bleeding, purulent drainage or septal hematoma. Throat without erythema, tonsillar hypertrophy or exudate. Uvula midline. Airway patent. NECK: Trachea midline. No JVD or lymphadenopathy. Supple, nontender, no meningeal signs. CARDIOVASCULAR: Regular rate and rhythm without murmurs, gallops, or rubs. RESPIRATORY: There is bilateral diffuse expiratory wheezing. Some rhonchi auscultated bilaterally as well. No rales. GASTROINTESTINAL: Abdomen soft, non-tender, nondistended. No hepato-splenomegaly , or palpable masses. No guarding. MUSCULOSKELETAL: Extremities without clubbing, cyanosis, or edema. No joint tenderness, effusion, or edema noted. No calf tenderness. Negative Homans sign bilaterally. NEUROLOGICAL: Awake and alert. Cranial nerves II through XII intact. Motor and sensory grossly within normal limits. Five out of 5 muscle strength in all muscle groups. Normal speech. Medications and IVs Current Medications Medications (Trade) Dose Ordered Sig/Sarah Route Start Time Stop Time Status Last Admin (NS Flush) 2 ml UNSCH PRN FLUSH 05/10/16 22:30 (NS Flush) 2 ml BID FLUSH 05/11/16 09:00 05/12/16 08:08 (Lovenox Inj) 40 mg Q24H SQ 05/11/16 09:00 05/12/16 08:09 Naloxone HCl 0.4 mg 0.4 mg UNSCH PRN IV 05/10/16 22:30 (Levaquin 750 Mg Premix Inj) 150 ml @ 100 mls/hr Q24H IV 05/11/16 22:00 05/11/16 20:41 (Protonix) 40 mg DAILY PO 05/11/16 09:00 05/12/16 08:08 (SoluMEDROL INJ) 60 mg Q6HR IV PUSH 05/11/16 12:00 05/12/16 05:50 (Robitussin Dm 200-20 Mg/10 ml Liq) 10 ml Q4H PRN PO 05/11/16 10:30 05/12/16 05:49 ([place] 5-325 Mg) 1 tab Q4H PRN PO 05/11/16 10:30 Acetaminophen/ Hydrocodone Bitart 1 tab 1 tab Q4H PRN PO 05/11/16 10:30 (NS 1000 ml Inj) 1,000 ml @ 125 mls/hr Q8H IV 05/11/16 10:32 05/11/16 22:25 (Habitrol 21 Mg Patch.24 Hr) 1 patch DAILY TD 05/12/16 09:00 05/12/16 08:08 Miscellaneous Information 1 DAILY TD 05/12/16 09:00 (Symbicort 160-4.5 Inh) 1 puff Q12HR INH 05/11/16 21:00 05/12/16 08:10 (Tessalon) 100 mg TID PRN PO 05/12/16 09:45 05/12/16 09:54 A/P Problem List: (1) Acute exacerbation of COPD with asthma ICD Code: J44.1 Status: Acute Plan: 49-year-old female with history of tobacco abuse presents with worsening shortness of breath and cough. Chest x-ray did not show any infiltrates, CTA ruled out PE but showed some cavitary infiltrates. On exam the patient has diffuse Patient is to the medical floor expiratory wheezing improving Continue bronchodilators. Continue steroids. Continue Robitussin-DM and I will Rx Tessalon Perles for cough if Robitussin-DM ineffective. Decrease Solu-Medrol to 40 mg IV every 8 hours. Appreciate pulmonary recommendations (2) PNA (pneumonia) ICD Code: J18.9 Status: Acute Plan: Continue IV Levaquin Legionella urine antigen and pneumococcal urine antigen negative Continue supplemental oxygen (3) Sepsis ICD Code: A41.9 Status: Acute Plan: Present on admission. On presentation to the emergency department patient had a leukocytosis of 16,000, respiratory rate of 20 and heart rate in the 100s. I will place the patient on IV normal saline. Continue to monitor vital signs, WBC. 05/12 patient with worsening leukocytosis. Lactic acid level up to 5. I will start the patient on IV vancomycin and increase IV fluids to 150 mL per hour. (4) Leukocytosis ICD Code: D72.829 Status: Acute Plan: WBC 16,000 on presentation, trending down. Continue to monitor CBC with differential. Elevated likely secondary to sepsis due to COPD exacerbation/ pneumonia. 05/12 WBC trending up up to 18,000. Continue to monitor CBC with differential. (5) Respiratory distress ICD Code: R06.00 Status: Resolved Plan: Due to COPD exacerbation/pneumonia. Respiratory distress much improved. Patient still with significant cough and wheezing. Continue to monitor vital signs and O2 sats. (6) Hyperglycemia ICD Code: R73.9 Status: Acute Plan: Likely steroid-induced. Blood glucose on presentation was 88, now 123. Check hemoglobin A1c. I will place the patient on SSI with insulin NovoLog. (7) Chronic back pain ICD Code: M54.9 Status: Acute Plan: Patient has history of neck and back surgery. Complains of back pain which is chronic. Continue Tylenol and Lortab as needed. Problem Qualifiers (1) PNA (pneumonia): Qualified Code: J18.9 - Pneumonia of both lungs due to infectious organism, unspecified part of lung (2) Sepsis: Qualified Code: A41.9 - Sepsis, due to unspecified organism (3) Leukocytosis: Qualified Code: D72.829 - Leukocytosis, unspecified type (4) Chronic back pain: Qualified Code: M54.5 - Chronic midline low back pain without sciatica Dylan Tomlinson MD May 12, 2016 11:44
[2016-05-12] MEDS ORDERED: Vancomycin Consult Pharmacy 1 EA OTHER SCH (11:45)
[2016-05-12] MEDS ORDERED: VANCOMYCIN INJ 900 MG in SODIUM CHLOR 0.9% 250 ML INJ 250 ML IV SCH (11:45)
[2016-05-12] MEDS ORDERED: POTASSIUM CHLORIDE 10 MEQ CONTROLLED RELEASE TAB PO ONE (11:45)
[2016-05-12] MEDS: VANCOMYCIN 1,000 MG/NS 250 ML IV SCH ×2 (12:15)
[2016-05-12 12:34] LABS: LACTIC ACID GHOST NOT REPORTABLE
[2016-05-12] MEDS: ACETAMINOPHEN/HYDROcodone 325 MG/7.5 MG TAB PO PRN (17:52)
--- NOTE | 2016-05-12 19:53 | HHI.PR ---
Subjective Remarks 51 YOWF with COPD exac, Pn, Nicotine use Has cough, small amount of sp No Fever Wheezing improving Objective Vital Signs Vital Signs Date Time Temp Pulse Resp B/P Pulse Ox O2 Delivery O2 Flow Rate FiO2 05/12/16 16:00 97.9 90 22 114/71 95 05/12/16 12:00 96.7 89 22 136/69 97 05/12/16 09:20 94 Nasal Cannula 2.00 05/12/16 08:00 98.6 92 22 108/56 94 05/12/16 04:00 98.8 88 20 118/72 96 05/12/16 00:00 98.0 86 20 114/68 97 05/11/16 20:00 98.2 85 20 114/68 96 I/O 05/11/16 05/11/16 05/11/16 05/12/16 05/12/16 05/12/16 07:00 15:00 23:00 07:00 15:00 23:00 Intake Total 420 ml 1375 ml 700 ml 240 ml 2028 ml Output Total 300 ml 1000 ml 450 ml 300 ml Balance 120 ml 375 ml 700 ml -210 ml 1728 ml Intake Oral 220 ml 1200 ml 240 ml 480 ml IV Total 200 ml 175 ml 700 ml 1548 ml Output Urine Total 300 ml 1000 ml 450 ml 300 ml # Bowel Movements 0 0 0 0 Result Diagram: 05/12/16 1030 05/12/16 1030 Objective Remarks GENERAL: MBMN WF, mild SOB SKIN: Warm and dry. HEAD: Normocephalic. EYES: No scleral icterus. No injection or drainage. NECK: Supple, trachea midline. No JVD or lymphadenopathy. CARDIOVASCULAR: Regular rate and rhythm without murmurs, gallops, or rubs. RESPIRATORY: Breath sounds equal bilaterally. No accessory muscle use. Exp rhonchi GASTROINTESTINAL: Abdomen soft, non-tender, nondistended. MUSCULOSKELETAL: No cyanosis, or edema. BACK: Nontender without obvious deformity. No CVA tenderness. A/P Assessment and Plan COPD Exac Pneumonia Persistant cough Ch back pain Anxiety Nicotine use PLAN:: Cont Abx IV Solumedrol Aerosol nebs Robitussin DM cough syp Tessalon Jimmy Koo MD May 12, 2016 19:53
[2016-05-12] MEDS: LEVOFLOXACIN 750 MG PREMIX INJ 150 ML IV SCH (21:08)
[2016-05-12] MEDS: ALPRAZolam 0.5 MG TAB PO PRN (21:09)
[2016-05-13] VITALS (9 sets, daily range): BP systolic 119–160; BP diastolic 66–88; PULSE 61–93; RESP 16–20; TEMP 96.1–97.9; O2SAT 94–97
[2016-05-13] MEDS: VANCOMYCIN 1,000 MG/NS 250 ML IV SCH ×4 (00:20→12:01)
[2016-05-13] MEDS: guaiFENesin/DEXTROMETHORPHAN 200 MG/20 MG/10 ML CUP PO PRN ×3 (00:20→22:03)
[2016-05-13] MEDS: ACETAMINOPHEN/HYDROcodone 325 MG/7.5 MG TAB PO PRN ×4 (00:20→19:47)
[2016-05-13] MEDS: RESP: ALBUTEROL 2.5 MG/IPRATROPIUM 0.5 MG NEB (SCH) NEB ×4 (03:47→19:22)
[2016-05-13] MEDS: methylPREDNISolone SOD SUCC 125 MG/2 ML VIAL IV PUSH SCH ×3 (05:07→22:03)
[2016-05-13] MEDS: SODIUM CHLOR 0.9% 1000 ML INJ 1,000 ML IV SCH ×3 (05:07→19:45)
[2016-05-13] MEDS: BENZONATATE 100 MG CAP PO PRN ×3 (05:08→19:47)
[2016-05-13 05:12] LABS: AUTOMATED NEUTROPHIL # 12.8 TH/MM3 (1.8-7.7); BASOPHIL % 0.1 % (0.0-2.0); LYMPH % 5.5 % (9.0-44.0); LYMPHOCYTE # 0.8 TH/MM3 (1.0-4.8); MEAN CORPUSCULAR HEMOGLOBIN 30.3 PG (27.0-34.0); MEAN CORPUSCULAR HGB CONC 33.3 % (32.0-36.0); MONO % 4.2 % (0.0-8.0); NEUT % 90.2 % (16.0-70.0); PLATELET COUNT 301 TH/MM3 (150-450); RED BLOOD COUNT 3.63 MIL/MM3 (4.00-5.30); WHITE BLOOD COUNT 14.3 TH/MM3 (4.0-11.0)
[2016-05-13 05:25] LABS: HEMO FLAGS AUTO DIFF
[2016-05-13 05:40] LABS: ALKALINE PHOSPHATASE 76 U/L (45-117); ALT (GPT) 46 U/L (10-53); ANION GAP 11 MEQ/L (5-15); AST (GOT) 44 U/L (15-37); BICARBONATE 24.1 MEQ/L (21.0-32.0); BLOOD UREA NITROGEN 10 MG/DL (7-18); CHLORIDE 109 MEQ/L (98-107); GLOMERULAR FILTRATION RATE 91 ML/MIN (>89); POTASSIUM 4.1 MEQ/L (3.5-5.1); SODIUM (NA) 144 MEQ/L (136-145); TOTAL BILIRUBIN ADULT 0.3 MG/DL (0.2-1.0)
[2016-05-13] MEDS: NICOTINE 21 MG/24 HR PATCH TD SCH (08:08)
[2016-05-13] MEDS: ENOXAPARIN SODIUM 40 MG/0.4 ML SYRINGE SQ SCH (08:09)
[2016-05-13] MEDS: PANTOPRAZOLE SOD 40 MG DELAYED RELEASE TAB PO SCH (08:10)
[2016-05-13] MEDS: ALPRAZolam 0.5 MG TAB PO PRN ×2 (08:10→22:03)
[2016-05-13] MEDS: REMOVE OLD PATCH TD SCH (08:10)
[2016-05-13] MEDS: BUDESONIDE-FORMOTEROL 160/4.5 MCG INHALER INH SCH ×2 (08:13→19:44)
[2016-05-13] MEDS: SODIUM CHLORIDE 0.9% FLUSH 5 ML FLUSH FLUSH SCH ×2 (08:14→19:45)
[2016-05-13 09:06] LABS: BANDS 18 % (0-6); PLATELET ESTIMATE SMEAR NORMAL (NORMAL); POLYS (SEG NEUTROPHILS) 73 % (16-70); WBC DIFF SAMPLE 100
[2016-05-13 09:07] LABS: PLATELET MORPHOLOGY NORMAL (NORMAL); SCAN/DIFF FINAL DIFF MANUAL
--- NOTE | 2016-05-13 16:26 | HHI.PR ---
Subjective Remarks 51 YOWF with COPD exac, Pn, Nicotine use Has cough, small amount of sp No Fever Wheezing improving Soreness of chest due to cough Did't sleep well Objective Vital Signs Vital Signs Date Time Temp Pulse Resp B/P Pulse Ox O2 Delivery O2 Flow Rate FiO2 05/13/16 16:00 97.8 84 16 128/78 94 05/13/16 12:00 97.6 82 17 132/79 95 05/13/16 08:00 97.9 93 17 119/66 95 05/13/16 07:43 97 05/13/16 04:00 96.1 74 20 144/88 97 05/13/16 00:00 97.7 81 20 148/72 94 05/12/16 22:19 98 Nasal Cannula 05/12/16 20:23 84 05/12/16 20:00 97.7 86 20 131/71 96 I/O 05/12/16 05/12/16 05/12/16 05/13/16 05/13/16 05/13/16 07:00 15:00 23:00 07:00 15:00 23:00 Intake Total 240 ml 2028 ml 945 ml 1455 ml 1578 ml Output Total 450 ml 300 ml 400 ml 900 ml 800 ml Balance -210 ml 1728 ml 545 ml 555 ml 778 ml Intake Oral 240 ml 480 ml 120 ml 480 ml 480 ml IV Total 1548 ml 825 ml 975 ml 1098 ml Output Urine Total 450 ml 300 ml 400 ml 900 ml 800 ml # Bowel Movements 0 0 Result Diagram: 05/13/1634505/13/16345 Objective Remarks GENERAL: MBMN WF, mild SOB SKIN: Warm and dry. HEAD: Normocephalic. EYES: No scleral icterus. No injection or drainage. NECK: Supple, trachea midline. No JVD or lymphadenopathy. CARDIOVASCULAR: Regular rate and rhythm without murmurs, gallops, or rubs. RESPIRATORY: Breath sounds equal bilaterally. No accessory muscle use. Exp rhonchi GASTROINTESTINAL: Abdomen soft, non-tender, nondistended. MUSCULOSKELETAL: No cyanosis, or edema. BACK: Nontender without obvious deformity. No CVA tenderness. A/P Assessment and Plan COPD Exac Pneumonia Persistant cough Ch back pain Anxiety Nicotine use PLAN:: Cont Abx IV Solumedrol Aerosol nebs Robitussin DM cough syp Tessalon Tid OOB And Ambulate Jimmy Reilly MD May 13, 2016 16:26
--- NOTE | 2016-05-13 17:26 | HHI.PR ---
Subjective Remarks sob better cough better denies fevers chills anxiety improved stable vital signs Objective Vitals Vital Signs Date Time Temp Pulse Resp B/P Pulse Ox O2 Delivery O2 Flow Rate FiO2 05/13/16 16:00 97.8 84 16 128/78 94 05/13/16 12:00 97.6 82 17 132/79 95 05/13/16 08:00 97.9 93 17 119/66 95 05/13/16 07:43 97 05/13/16 04:00 96.1 74 20 144/88 97 05/13/16 00:00 97.7 81 20 148/72 94 05/12/16 22:19 98 Nasal Cannula 05/12/16 20:23 84 05/12/16 20:00 97.7 86 20 131/71 96 I/O 05/12/16 05/12/16 05/12/16 05/13/16 05/13/16 05/13/16 07:00 15:00 23:00 07:00 15:00 23:00 Intake Total 240 ml 2028 ml 945 ml 1455 ml 1578 ml Output Total 450 ml 300 ml 400 ml 900 ml 800 ml Balance -210 ml 1728 ml 545 ml 555 ml 778 ml Intake Oral 240 ml 480 ml 120 ml 480 ml 480 ml IV Total 1548 ml 825 ml 975 ml 1098 ml Output Urine Total 450 ml 300 ml 400 ml 900 ml 800 ml # Bowel Movements 0 0 Result Diagram: 05/13/16 0346 05/13/16 0346 Imaging Last Impressions Chest X-Ray 05/10/16 1725 Signed Impressions: Service Date/Time: Tuesday, May 10, 2016 17:54 - CONCLUSION: No acute disease. Nathan Weems MD CT Angiography 05/10/16 0000 Signed Impressions: Service Date/Time: Tuesday, May 10, 2016 21:49 - CONCLUSION: 1. No definite PE. 2. Scattered cavitary infiltrates bilaterally Nathan Weems MD Objective Remarks GENERAL: This is a thin, well-developed patient, in mild respiratory distress due to cough and wheezing. SKIN: No rashes, ecchymoses or lesions. Cool and dry. HEAD: Atraumatic. Normocephalic. No temporal or scalp tenderness. EYES: Pupils equal round and reactive. Extraocular motions intact. No scleral icterus. No injection or drainage. ENT: Nose without bleeding, purulent drainage or septal hematoma. Throat without erythema, tonsillar hypertrophy or exudate. Uvula midline. Airway patent. NECK: Trachea midline. No JVD or lymphadenopathy. Supple, nontender, no meningeal signs. CARDIOVASCULAR: Regular rate and rhythm without murmurs, gallops, or rubs. RESPIRATORY: There is bilateral diffuse expiratory wheezing. Some rhonchi auscultated bilaterally as well. No rales. GASTROINTESTINAL: Abdomen soft, non-tender, nondistended. No hepato-splenomegaly , or palpable masses. No guarding. MUSCULOSKELETAL: Extremities without clubbing, cyanosis, or edema. No joint tenderness, effusion, or edema noted. No calf tenderness. Negative Homans sign bilaterally. NEUROLOGICAL: Awake and alert. Cranial nerves II through XII intact. Motor and sensory grossly within normal limits. Five out of 5 muscle strength in all muscle groups. Normal speech. Medications and IVs Current Medications Medications (Trade) Dose Ordered Sig/Sarah Route Start Time Stop Time Status Last Admin (NS Flush) 2 ml UNSCH PRN FLUSH 05/10/16 22:30 (NS Flush) 2 ml BID FLUSH 05/11/16 09:00 05/13/16 08:14 (Lovenox Inj) 40 mg Q24H SQ 05/11/16 09:00 05/13/16 08:09 Naloxone HCl 0.4 mg 0.4 mg UNSCH PRN IV 05/10/16 22:30 (Levaquin 750 Mg Premix Inj) 150 ml @ 100 mls/hr Q24H IV 05/11/16 22:00 05/12/16 21:08 (Protonix) 40 mg DAILY PO 05/11/16 09:00 05/13/16 08:10 (Robitussin Dm 200-20 Mg/10 ml Liq) 10 ml Q4H PRN PO 05/11/16 10:30 05/13/16 08:09 ([place] 5-325 Mg) 1 tab Q4H PRN PO 05/11/16 10:30 Acetaminophen/ Hydrocodone Bitart 1 tab 1 tab Q4H PRN PO 05/11/16 10:30 05/13/16 12:07 (NS 1000 ml Inj) 1,000 ml @ 150 mls/hr Q6H40M IV 05/11/16 10:32 05/13/16 12:04 (Habitrol 21 Mg Patch.24 Hr) 1 patch DAILY TD 05/12/16 09:00 05/13/16 08:08 Miscellaneous Information 1 DAILY TD 05/12/16 09:00 05/13/16 08:10 (Symbicort 160-4.5 Inh) 1 puff Q12HR INH 05/11/16 21:00 05/13/16 08:13 Benzonatate 100 mg 100 mg TID PRN PO 05/12/16 09:45 05/13/16 12:07 (Vancomycin Consult Pharmacy) 0 ml @ 0 mls/hr UNSCH OTHER 05/12/16 11:45 (Xanax) 0.5 mg Q8H PRN PO 05/12/16 12:00 05/13/16 08:10 Methylprednisolone Sodium Succinate 40 mg 40 mg Q8HR IV PUSH 05/12/16 14:00 05/13/16 12:01 (Vancomycin Inj/ NS 250 ml Inj) 250 ml @ 250 mls/hr Q12H IV 05/12/16 13:00 05/13/16 12:01 Miscellaneous Information SPECIFIC LAB TO BE DRAWN:VANCOMYCIN TROUGH DATE TO... ONCE ONCE XX 05/14/16 12:45 05/14/16 12:46 Urinary Catheter: No Vascular Central Line Catheter: No A/P Problem List: (1) Acute exacerbation of COPD with asthma ICD Code: J44.1 Status: Acute Plan: 49-year-old female with history of tobacco abuse presents with worsening shortness of breath and cough. Chest x-ray did not show any infiltrates, CTA ruled out PE but showed some cavitary infiltrates. On exam the patient has diffuse Patient is to the medical floor expiratory wheezing improving Continue bronchodilators. Continue steroids. Continue Robitussin-DM and I will Rx Tessalon Perles for cough if Robitussin-DM ineffective. Decrease Solu-Medrol to 40 mg IV every12 hours Appreciate pulmonary recommendations (2) PNA (pneumonia) ICD Code: J18.9 Status: Acute Plan: Continue IV Levaquin Legionella urine antigen and pneumococcal urine antigen negative Continue supplemental oxygen (3) Sepsis ICD Code: A41.9 Status: Acute Plan: Present on admission. On presentation to the emergency department patient had a leukocytosis of 16,000, respiratory rate of 20 and heart rate in the 100s. I will place the patient on IV normal saline. Continue to monitor vital signs, WBC. 05/12 patient with worsening leukocytosis. Lactic acid level up to 5. 05/13 leukocytosis is improving, lactic acid trending down. Continue IV fluids. (4) Leukocytosis ICD Code: D72.829 Status: Acute Plan: WBC 16,000 on presentation, trending down. Continue to monitor CBC with differential. Elevated likely secondary to sepsis due to COPD exacerbation/ pneumonia. 05/12 WBC trending up up to 18,000. Continue to monitor CBC with differential. 05/13 leukocytosis trending down. Continue IV antibiotics as above. (5) Respiratory distress ICD Code: R06.00 Status: Resolved Plan: Due to COPD exacerbation/pneumonia. Cough and wheezing much improved. (6) Hyperglycemia ICD Code: R73.9 Status: Acute Plan: Likely steroid-induced. Blood glucose on presentation was 88, now 123. Check hemoglobin A1c. I will place the patient on SSI with insulin NovoLog. (7) Chronic back pain ICD Code: M54.9 Status: Acute Plan: Patient has history of neck and back surgery. Complains of back pain which is chronic. Continue Tylenol and Lortab as needed. Problem Qualifiers (1) PNA (pneumonia): Qualified Code: J18.9 - Pneumonia of both lungs due to infectious organism, unspecified part of lung (2) Sepsis: Qualified Code: A41.9 - Sepsis, due to unspecified organism (3) Leukocytosis: Qualified Code: D72.829 - Leukocytosis, unspecified type (4) Chronic back pain: Qualified Code: M54.5 - Chronic midline low back pain without sciatica Dylan Tomlinson MD May 13, 2016 17:26
[2016-05-13] MEDS: LEVOFLOXACIN 750 MG PREMIX INJ 150 ML IV SCH (19:45)
[2016-05-14] VITALS (11 sets, daily range): BP systolic 126–175; BP diastolic 68–94; PULSE 50–72; RESP 18–22; TEMP 95.4–98.4; O2SAT 95–97
[2016-05-14] MEDS: VANCOMYCIN 1,000 MG/NS 250 ML IV SCH ×2 (00:55)
[2016-05-14] MEDS: ACETAMINOPHEN/HYDROcodone 325 MG/7.5 MG TAB PO PRN ×6 (00:55→23:11)
[2016-05-14] MEDS: BENZONATATE 100 MG CAP PO PRN ×3 (03:29→18:36)
[2016-05-14] MEDS: guaiFENesin/DEXTROMETHORPHAN 200 MG/20 MG/10 ML CUP PO PRN ×3 (03:29→18:37)
[2016-05-14] MEDS: SODIUM CHLOR 0.9% 1000 ML INJ 1,000 ML IV SCH ×4 (03:30→20:11)
[2016-05-14] MEDS: RESP: ALBUTEROL 2.5 MG/IPRATROPIUM 0.5 MG NEB (SCH) NEB ×4 (04:04→22:15)
[2016-05-14] MEDS: methylPREDNISolone SOD SUCC 125 MG/2 ML VIAL IV PUSH SCH (05:38)
[2016-05-14] MEDS: NICOTINE 21 MG/24 HR PATCH TD SCH (07:54)
[2016-05-14] MEDS: ENOXAPARIN SODIUM 40 MG/0.4 ML SYRINGE SQ SCH (07:55)
[2016-05-14] MEDS: BUDESONIDE-FORMOTEROL 160/4.5 MCG INHALER INH SCH ×2 (07:55→20:08)
[2016-05-14] MEDS: SODIUM CHLORIDE 0.9% FLUSH 5 ML FLUSH FLUSH SCH ×2 (07:55→20:08)
[2016-05-14] MEDS: ALPRAZolam 0.5 MG TAB PO PRN ×2 (07:55→18:33)
[2016-05-14] MEDS: PANTOPRAZOLE SOD 40 MG DELAYED RELEASE TAB PO SCH (07:55)
[2016-05-14] MEDS: REMOVE OLD PATCH TD SCH (07:56)
[2016-05-14] MEDS ORDERED: ENALAPRILAT 1.25 MG/ML VIAL IV PUSH PRN (10:30)
[2016-05-14 11:17] LABS: AUTOMATED NEUTROPHIL # 9.3 TH/MM3 (1.8-7.7); BASOPHIL % 0.1 % (0.0-2.0); HEMATOCRIT 35.2 % (35.0-46.0); LYMPH % 5.9 % (9.0-44.0); LYMPHOCYTE # 0.6 TH/MM3 (1.0-4.8); MEAN CELL VOLUME 91.4 FL (80.0-100.0); MEAN CORPUSCULAR HEMOGLOBIN 30.5 PG (27.0-34.0); MEAN CORPUSCULAR HGB CONC 33.4 % (32.0-36.0); MONO % 3.6 % (0.0-8.0); NEUT % 90.4 % (16.0-70.0); PLATELET COUNT 334 TH/MM3 (150-450); RED BLOOD COUNT 3.85 MIL/MM3 (4.00-5.30); WHITE BLOOD COUNT 10.3 TH/MM3 (4.0-11.0)
[2016-05-14 11:18] LABS: HEMO FLAGS AUTO DIFF
[2016-05-14 11:43] LABS: ANION GAP 11 MEQ/L (5-15); AST (GOT) 48 U/L (15-37); BICARBONATE 23.1 MEQ/L (21.0-32.0); BLOOD UREA NITROGEN 9 MG/DL (7-18); CHLORIDE 108 MEQ/L (98-107); GLOMERULAR FILTRATION RATE 65 ML/MIN (>89); POTASSIUM 3.5 MEQ/L (3.5-5.1); SODIUM (NA) 142 MEQ/L (136-145)
[2016-05-14 11:47] LABS: ALKALINE PHOSPHATASE 70 U/L (45-117); ALT (GPT) 84 U/L (10-53); TOTAL BILIRUBIN ADULT 0.4 MG/DL (0.2-1.0)
[2016-05-14 11:57] LABS: BANDS 18 % (0-6); METAMYELOCYTES 2 % (0-1); MYELOCYTES 2 % (0-0); PLATELET ESTIMATE SMEAR NORMAL (NORMAL); PLATELET MORPHOLOGY NORMAL (NORMAL); POLYS (SEG NEUTROPHILS) 65 % (16-70); SCAN/DIFF FINAL DIFF MANUAL; WBC DIFF SAMPLE 100
[2016-05-14] MEDS ORDERED: PHARMACY ORDERED LAB XX ONE (12:45)
[2016-05-14] MEDS ORDERED: SODIUM CHLOR 0.9% 1000 ML INJ 1,000 ML IV ONE (13:00)
--- NOTE | 2016-05-14 14:13 | HHI.PR ---
Subjective Remarks 51 YOWF with COPD exac, Pn, Nicotine use Has cough, small amount of sp No Fever Wheezing improving Soreness of chest due to cough Has cough, not able to expactorate Objective Vital Signs Vital Signs Date Time Temp Pulse Resp B/P Pulse Ox O2 Delivery O2 Flow Rate FiO2 05/14/16 11:30 97.4 65 19 142/71 96 05/14/16 10:51 175/94 05/14/16 08:50 96 05/14/16 08:00 98.4 68 18 174/77 95 05/14/16 04:00 95.4 56 20 162/73 97 05/14/16 00:00 96.1 63 20 170/78 95 05/13/16 20:00 96.2 61 20 160/87 95 05/13/16 19:44 84 05/13/16 19:22 97 21 05/13/16 16:00 97.8 84 16 128/78 94 I/O 05/13/16 05/13/16 05/13/16 05/14/16 05/14/16 05/14/16 07:00 15:00 23:00 07:00 15:00 23:00 Intake Total 1455 ml 1578 ml 1485 ml 1490 ml 1080 ml Output Total 900 ml 800 ml 700 ml 900 ml 600 ml Balance 555 ml 778 ml 785 ml 590 ml 480 ml Intake Oral 480 ml 480 ml 480 ml 480 ml 1080 ml IV Total 975 ml 1098 ml 1005 ml 1010 ml Output Urine Total 900 ml 800 ml 700 ml 900 ml 600 ml # Bowel Movements 0 Result Diagram: 05/14/16 1106 05/14/16 1106 Objective Remarks GENERAL: MBMN WF, mild SOB SKIN: Warm and dry. HEAD: Normocephalic. EYES: No scleral icterus. No injection or drainage. NECK: Supple, trachea midline. No JVD or lymphadenopathy. CARDIOVASCULAR: Regular rate and rhythm without murmurs, gallops, or rubs. RESPIRATORY: Breath sounds equal bilaterally. No accessory muscle use. Exp rhonchi GASTROINTESTINAL: Abdomen soft, non-tender, nondistended. MUSCULOSKELETAL: No cyanosis, or edema. BACK: Nontender without obvious deformity. No CVA tenderness. A/P Assessment and Plan COPD Exac Pneumonia Persistant cough Ch back pain Anxiety Nicotine use PLAN:: Cont Abx IV Solumedrol Aerosol nebs Robitussin DM cough syp Tessalon Tid OOB And Ambulate Will try Jimmy Workman MD May 14, 2016 14:13
[2016-05-14] MEDS: VANCOMYCIN INJ 900 MG in SODIUM CHLOR 0.9% 250 ML INJ 250 ML IV SCH ×2 (15:35→23:09)
[2016-05-14] MEDS: methylPREDNISolone SOD SUCC 40 MG/1 ML VIAL IV PUSH SCH (20:07)
[2016-05-14] MEDS: LEVOFLOXACIN 750 MG PREMIX INJ 150 ML IV SCH (20:09)
--- NOTE | 2016-05-14 21:12 | HHI.PR ---
Subjective Remarks deferred entry patient seen earlier at 11 am patient states her breathing is improving still coughing anxiety better daughter at bedside no fevers or chills lactic acid elevated Objective Vitals Vital Signs Date Time Temp Pulse Resp B/P Pulse Ox O2 Delivery O2 Flow Rate FiO2 05/14/16 16:00 97.1 72 18 126/68 95 05/14/16 15:41 50 05/14/16 11:30 97.4 65 19 142/71 96 05/14/16 10:51 175/94 05/14/16 08:50 96 05/14/16 08:00 98.4 68 18 174/77 95 05/14/16 04:00 95.4 56 20 162/73 97 05/14/16 00:00 96.1 63 20 170/78 95 I/O 05/13/16 05/13/16 05/13/16 05/14/16 05/14/16 05/14/16 06:59 14:59 22:59 06:59 14:59 22:59 Intake Total 1455 ml 1578 ml 1485 ml 1490 ml 1080 ml 2505 ml Output Total 900 ml 800 ml 700 ml 900 ml 600 ml Balance 555 ml 778 ml 785 ml 590 ml 480 ml 2505 ml Intake Oral 480 ml 480 ml 480 ml 480 ml 1080 ml IV Total 975 ml 1098 ml 1005 ml 1010 ml 2505 ml Output Urine Total 900 ml 800 ml 700 ml 900 ml 600 ml # Bowel Movements 0 Result Diagram: 05/14/16 1106 05/14/16 1106 Imaging Last Impressions Chest X-Ray 05/10/16 1725 Signed Impressions: Service Date/Time: Tuesday, May 10, 2016 17:54 - CONCLUSION: No acute disease. Nathan Weems MD CT Angiography 05/10/16 0000 Signed Impressions: Service Date/Time: Tuesday, May 10, 2016 21:49 - CONCLUSION: 1. No definite PE. 2. Scattered cavitary infiltrates bilaterally Nathan Weems MD Objective Remarks GENERAL: This is a thin, well-developed patient, in mild respiratory distress due to cough and wheezing. SKIN: No rashes, ecchymoses or lesions. Cool and dry. HEAD: Atraumatic. Normocephalic. No temporal or scalp tenderness. EYES: Pupils equal round and reactive. Extraocular motions intact. No scleral icterus. No injection or drainage. ENT: Nose without bleeding, purulent drainage or septal hematoma. Throat without erythema, tonsillar hypertrophy or exudate. Uvula midline. Airway patent. NECK: Trachea midline. No JVD or lymphadenopathy. Supple, nontender, no meningeal signs. CARDIOVASCULAR: Regular rate and rhythm without murmurs, gallops, or rubs. RESPIRATORY: There is bilateral diffuse expiratory wheezing. Some rhonchi auscultated bilaterally as well. No rales. GASTROINTESTINAL: Abdomen soft, non-tender, nondistended. No hepato-splenomegaly , or palpable masses. No guarding. MUSCULOSKELETAL: Extremities without clubbing, cyanosis, or edema. No joint tenderness, effusion, or edema noted. No calf tenderness. Negative Homans sign bilaterally. NEUROLOGICAL: Awake and alert. Cranial nerves II through XII intact. Motor and sensory grossly within normal limits. Five out of 5 muscle strength in all muscle groups. Normal speech. Medications and IVs Current Medications Medications (Trade) Dose Ordered Sig/Sarah Route Start Time Stop Time Status Last Admin (NS Flush) 2 ml UNSCH PRN FLUSH 05/10/16 22:30 (NS Flush) 2 ml BID FLUSH 05/11/16 09:00 05/14/16 20:08 (Lovenox Inj) 40 mg Q24H SQ 05/11/16 09:00 05/14/16 07:55 Naloxone HCl 0.4 mg 0.4 mg UNSCH PRN IV 05/10/16 22:30 (Levaquin 750 Mg Premix Inj) 150 ml @ 100 mls/hr Q24H IV 05/11/16 22:00 05/14/16 20:09 (Protonix) 40 mg DAILY PO 05/11/16 09:00 05/14/16 07:55 (Robitussin Dm 200-20 Mg/10 ml Liq) 10 ml Q4H PRN PO 05/11/16 10:30 05/14/16 18:37 ([place] 5-325 Mg) 1 tab Q4H PRN PO 05/11/16 10:30 Acetaminophen/ Hydrocodone Bitart 1 tab 1 tab Q4H PRN PO 05/11/16 10:30 05/14/16 18:33 (NS 1000 ml Inj) 1,000 ml @ 150 mls/hr Q6H40M IV 05/11/16 10:32 05/14/16 20:11 (Habitrol 21 Mg Patch.24 Hr) 1 patch DAILY TD 05/12/16 09:00 05/14/16 07:54 Miscellaneous Information 1 DAILY TD 05/12/16 09:00 05/14/16 07:56 (Symbicort 160-4.5 Inh) 1 puff Q12HR INH 05/11/16 21:00 05/14/16 20:08 Benzonatate 100 mg 100 mg TID PRN PO 05/12/16 09:45 05/14/16 18:36 (Vancomycin Consult Pharmacy) 0 ml @ 0 mls/hr UNSCH OTHER 05/12/16 11:45 (Xanax) 0.5 mg Q8H PRN PO 05/12/16 12:00 05/14/16 18:33 (Vasotec Inj) 1.25 mg Q6H PRN IV PUSH 05/14/16 10:30 05/14/16 11:05 Methylprednisolone Sodium Succinate 40 mg 40 mg Q12HR IV PUSH 05/14/16 21:00 05/14/16 20:07 (Vancomycin Inj/ NS 250 ml Inj) 259 ml @ 250 mls/hr Q8H IV 05/14/16 15:00 05/14/16 15:35 Miscellaneous Information SPECIFIC LAB TO BE DRAWN:VANCO TROUGH DATE... ONCE ONCE XX 05/15/16 06:45 05/15/16 06:46 Urinary Catheter: No Vascular Central Line Catheter: No A/P Problem List: (1) Acute exacerbation of COPD with asthma ICD Code: J44.1 Status: Acute (2) PNA (pneumonia) ICD Code: J18.9 Status: Acute (3) Sepsis ICD Code: A41.9 Status: Acute (4) Leukocytosis ICD Code: D72.829 Status: Acute (5) Respiratory distress ICD Code: R06.00 Status: Resolved (6) Hyperglycemia ICD Code: R73.9 Status: Acute (7) Chronic back pain ICD Code: M54.9 Status: Acute Assessment and Plan (1) Acute exacerbation of COPD with asthma Plan: 49-year-old female with history of tobacco abuse presents with worsening shortness of breath and cough. Chest x-ray did not show any infiltrates, CTA ruled out PE but showed some cavitary infiltrates. Patient admitted to the medical floor. expiratory wheezing improving Continue bronchodilators. Continue steroids Continue Robitussin-DM and I will Rx Tessalon Perles for cough if Robitussin-DM ineffective. Decrease Solu-Medrol to 40 mg IV every12 hours Appreciate pulmonary recommendations (2) PNA (pneumonia) Plan: Continue IV Levaquin Legionella urine antigen and pneumococcal urine antigen negative Continue supplemental oxygen to keep o2 sat >92% (3) Sepsis Plan: Present on admission. On presentation to the emergency department patient had a leukocytosis of 16,000, respiratory rate of 20 and heart rate in the 100s. I will place the patient on IV normal saline. Continue to monitor vital signs, WBC. 05/12 patient with worsening leukocytosis. Lactic acid level up to 5. 05/13 leukocytosis is improving, lactic acid trending down. Continue IV fluids. 05/14/16 Blood cultures negative to date, continue IV fluids since lactic acid elevated, continue IV Levaquin, Leukocytosis continues to improve. (4) Leukocytosis Plan: WBC 16,000 on presentation, trending down. Continue to monitor CBC with differential. Elevated likely secondary to sepsis due to COPD exacerbation/ pneumonia. 05/12 WBC trending up up to 18,000. Continue to monitor CBC with differential. 05/13 leukocytosis trending down. Continue IV antibiotics as above. 05/14/16 Continues to improve, down to 10,000 (5) Respiratory distress Plan: Due to COPD exacerbation/pneumonia. Cough and wheezing much improved. (6) Hyperglycemia Plan: Likely steroid-induced. Blood glucose on presentation was 88, now 123. Check hemoglobin A1c pending. Continue SSI with insulin Novolog. (7) Chronic back pain Plan: Patient has history of neck and back surgery. Complains of back pain which is chronic. Continue Tylenol and Lortab as needed. Discharge Planning Continue to monitor in the medical floor. Problem Qualifiers (1) PNA (pneumonia): Qualified Code: J18.9 - Pneumonia of both lungs due to infectious organism, unspecified part of lung (2) Sepsis: Qualified Code: A41.9 - Sepsis, due to unspecified organism (3) Leukocytosis: Qualified Code: D72.829 - Leukocytosis, unspecified type (4) Chronic back pain: Qualified Code: M54.5 - Chronic midline low back pain without sciatica Dylan Tomlinson MD May 14, 2016 21:12
[2016-05-15] VITALS: BP 163/78; PULSE 72; RESP 22; TEMP 97.7; O2SAT 96
[2016-05-15] MEDS: ALPRAZolam 0.5 MG TAB PO PRN ×2 (03:08→11:59)
[2016-05-15] MEDS: guaiFENesin/DEXTROMETHORPHAN 200 MG/20 MG/10 ML CUP PO PRN (03:08)
[2016-05-15] MEDS: BENZONATATE 100 MG CAP PO PRN ×2 (03:08→11:59)
[2016-05-15] MEDS: SODIUM CHLOR 0.9% 1000 ML INJ 1,000 ML IV SCH ×2 (03:11→11:50)
[2016-05-15] MEDS: RESP: ALBUTEROL 2.5 MG/IPRATROPIUM 0.5 MG NEB (SCH) NEB (03:22)
[2016-05-15 04:00] VITALS: BP 128/77; PULSE 84; RESP 22; TEMP 97.9; O2SAT 96
[2016-05-15] MEDS: VANCOMYCIN INJ 900 MG in SODIUM CHLOR 0.9% 250 ML INJ 250 ML IV SCH (06:19)
[2016-05-15] MEDS: ACETAMINOPHEN/HYDROcodone 325 MG/7.5 MG TAB PO PRN (06:20)
[2016-05-15] MEDS ORDERED: PHARMACY ORDERED LAB XX ONE (06:45)
[2016-05-15] MEDS: NICOTINE 21 MG/24 HR PATCH TD SCH (07:47)
[2016-05-15] MEDS: REMOVE OLD PATCH TD SCH (07:47)
[2016-05-15] MEDS: methylPREDNISolone SOD SUCC 40 MG/1 ML VIAL IV PUSH SCH (07:48)
[2016-05-15] MEDS: SODIUM CHLORIDE 0.9% FLUSH 5 ML FLUSH FLUSH SCH (07:48)
[2016-05-15] MEDS: PANTOPRAZOLE SOD 40 MG DELAYED RELEASE TAB PO SCH (07:48)
[2016-05-15] MEDS: BUDESONIDE-FORMOTEROL 160/4.5 MCG INHALER INH SCH (07:48)
[2016-05-15] MEDS: ENOXAPARIN SODIUM 40 MG/0.4 ML SYRINGE SQ SCH (07:48)
[2016-05-15 07:55] LABS: LACTIC ACID GHOST NOT REPORTABLE
[2016-05-15 08:00] VITALS: BP 130/85; PULSE 62; RESP 24; TEMP 97.6; O2SAT 98
[2016-05-15 08:52] VITALS: O2SAT 98
[2016-05-15] MEDS ORDERED: predniSONE 20 MG TAB PO SCH (09:00)
[2016-05-15] MEDS ORDERED: POTASSIUM CHLORIDE 10 MEQ CONTROLLED RELEASE TAB PO ONE (09:30)
[2016-05-15 12:00] VITALS: BP 145/92; PULSE 77; RESP 24; TEMP 98; O2SAT 97
[2016-05-15] MEDS ORDERED: ALPR.5 PO (12:26)
[2016-05-15] MEDS ORDERED: IPRASOL NEB (12:26)
[2016-05-15] MEDS ORDERED: PRED20 PO (12:26)
[2016-05-15] MEDS ORDERED: NICO21DI6 T-DERMAL (12:26)
[2016-05-15] MEDS ORDERED: TIOT1AER2 INH (12:26)
[2016-05-15] MEDS ORDERED: BENZ100 PO (12:26)
--- NOTE | 2016-05-15 12:27 | HHI.DCPOC ---
Discharge Care Plan Diagnosis: (1) Respiratory distress (2) Chronic back pain (3) Hyperglycemia (4) Leukocytosis (5) Sepsis (6) PNA (pneumonia) (7) Upper respiratory infection (8) Acute exacerbation of COPD with asthma Goals to Promote Your Health * To prevent worsening of your condition and complications * To maintain your health at the optimal level Directions to Meet Your Goals Take your medications as prescribed Follow your dietary instruction Follow activity as directed Keep your appointments as scheduled Take your immunizations and boosters as scheduled If your symptoms worsen call your PCP, if no PCP go to Urgent Care Center or Emergency Room Smoking is Dangerous to Your Health. Avoid second hand smoke Call the 24-hour hour crisis hotline for domestic abuse at Dylan Tomlinson MD May 15, 2016 12:27
[2016-05-15] MEDS ORDERED: LEVO500T3 PO (12:31)
--- NOTE | 2016-05-15 12:36 | HHI.DS ---
Discharge Summary Admission Date May 10, 2016 at 22:27 Discharge Date: May 15, 2016 Admitting Diagnosis asthma exacerbation, pneumonia (1) Acute exacerbation of COPD with asthma ICD Code: J44.1 Diagnosis: Principal (2) PNA (pneumonia) ICD Code: J18.9 Diagnosis: Principal (3) Sepsis ICD Code: A41.9 Diagnosis: Principal (4) Leukocytosis ICD Code: D72.829 Diagnosis: Principal (5) Respiratory distress ICD Code: R06.00 Diagnosis: Principal (6) Hyperglycemia ICD Code: R73.9 Diagnosis: Principal (7) Chronic back pain ICD Code: M54.9 Diagnosis: Secondary (8) Hx of neck surgery ICD Code: Z98.89 Diagnosis: Secondary (9) History of lumbar surgery ICD Code: Z98.89 Diagnosis: Secondary (10) Smoking addiction ICD Code: F17.200 Diagnosis: Principal Procedures none Brief History - From Admission This is a 51-year-old female with past medical history significant for asthma, chronic back pain, tobacco abuse who presents to [facility] complaining of worsening shortness of breath and cough for the past week. The patient states that she recently came back from [place] from visiting family and became very short of breath up to the point where she could not breathe. The patient also states that she has a cough which has been initially dry and now slightly productive which has been also getting worst throughout the days. Patient states all her symptoms started prior to visiting [place]. The patient denies fevers or chills but she admits to feeling hot and cold and having sweats. Denies any weight loss, denies hemoptysis, denies diarrhea but states she always has loose stools. Patient also complains of abdominal pain localized in the gastric region which is worst when she coughs. The patient was seen in the emergency department and given Solu-Medrol 125 mg IV once as well as DuoNeb treatments. Patient states she is still coughing frequently and very wheezy but shortness of breath has improved. CBC/BMP: 05/14/16 1106 05/14/16 1106 Significant Findings Laboratory Tests Test 05/12/16 05/13/16 05/14/16 05/15/16 14:03 03:46 11:06 05:50 Lactic Acid Level 4.2 mmol/L 4.6 mmol/L 2.2 mmol/L (0.4-2.0) (0.4-2.0) (0.4-2.0) White Blood Count 14.3 TH/MM3 (4.0-11.0) Red Blood Count 3.63 MIL/MM3 3.85 MIL/MM3 (4.00-5.30) (4.00-5.30) Hemoglobin 11.0 GM/DL (11.6-15.3) Hematocrit 33.0 % (35.0-46.0) Neutrophils (%) (Auto) 90.2 % 90.4 % (16.0-70.0) (16.0-70.0) Lymphocytes (%) (Auto) 5.5 % 5.9 % (9.0-44.0) (9.0-44.0) Neutrophils # (Auto) 12.8 TH/MM3 9.3 TH/MM3 (1.8-7.7) (1.8-7.7) Lymphocytes # (Auto) 0.8 TH/MM3 0.6 TH/MM3 (1.0-4.8) (1.0-4.8) Neutrophils % (Manual) 73 % (16-70) Band Neutrophils % 18 % (0-6) 18 % (0-6) Lymphocytes % 3 % (9-44) 7 % (9-44) Neutrophils # (Manual) 13.0 TH/MM3 9.0 TH/MM3 (1.8-7.7) (1.8-7.7) Chloride Level 109 MEQ/L 108 MEQ/L (98-107) (98-107) Random Glucose 129 MG/DL 185 MG/DL (74-106) (74-106) Aspartate Amino Transf 44 U/L (15-37) 48 U/L (15-37) (AST/SGOT) Total Protein 6.0 GM/DL (6.4-8.2) Albumin 2.8 GM/DL 3.1 GM/DL (3.4-5.0) (3.4-5.0) Metamyelocytes 2 % (0-1) Myelocytes 2 % (0-0) Estimat Glomerular Filtration 65 ML/MIN (>89) Rate Alanine Aminotransferase 84 U/L (10-53) (ALT/SGPT) Vancomycin Level Trough 10.4 MCG/ML (5.0-10.0) Test 05/15/16 06:00 Vancomycin Level Trough 15.5 MCG/ML (5.0-10.0) Imaging Last Impressions Chest X-Ray 05/10/16 1725 Signed Impressions: Service Date/Time: Tuesday, May 10, 2016 17:54 - CONCLUSION: No acute disease. Nathan Weems MD CT Angiography 05/10/16 0000 Signed Impressions: Service Date/Time: Tuesday, May 10, 2016 21:49 - CONCLUSION: 1. No definite PE. 2. Scattered cavitary infiltrates bilaterally Nathan Weems MD PE at Discharge GENERAL: This is a thin, well-developed patient, in mild respiratory distress due to cough and wheezing. SKIN: No rashes, ecchymoses or lesions. Cool and dry. HEAD: Atraumatic. Normocephalic. No temporal or scalp tenderness. EYES: Pupils equal round and reactive. Extraocular motions intact. No scleral icterus. No injection or drainage. ENT: Nose without bleeding, purulent drainage or septal hematoma. Throat without erythema, tonsillar hypertrophy or exudate. Uvula midline. Airway patent. NECK: Trachea midline. No JVD or lymphadenopathy. Supple, nontender, no meningeal signs. CARDIOVASCULAR: Regular rate and rhythm without murmurs, gallops, or rubs. RESPIRATORY: Lungs almost clear to auscultation with minimal wheezing. Some rhonchi auscultated bilaterally as well. No rales. GASTROINTESTINAL: Abdomen soft, non-tender, nondistended. No hepato-splenomegaly , or palpable masses. No guarding. MUSCULOSKELETAL: Extremities without clubbing, cyanosis, or edema. No joint tenderness, effusion, or edema noted. No calf tenderness. Negative Homans sign bilaterally. NEUROLOGICAL: Awake and alert. Cranial nerves II through XII intact. Motor and sensory grossly within normal limits. Five out of 5 muscle strength in all muscle groups. Normal speech. Pt update on day of discharge Patient with good oxygen saturation on room air, denies cp/sob, denies fevers and chills, still has persistent cough. Lactate acid came down to normal otherwise stable vital signs and patient afebrile. Hospital Course (1) Acute exacerbation of COPD with asthma Plan: 49-year-old female with history of tobacco abuse presents with worsening shortness of breath and cough. Chest x-ray did not show any infiltrates, CTA ruled out PE but showed some cavitary infiltrates. Patient admitted to the medical floor. expiratory wheezing improving Treated w bronchodilators. Treated w steroids Continue Robitussin-DM and I will Rx Tessalon Perles for cough if Robitussin-DM ineffective. Solumedrol tapered to oral prednisone Appreciate pulmonary recommendations (2) PNA (pneumonia) Treated w IV Levaquin Legionella urine antigen and pneumococcal urine antigen negative Continue supplemental oxygen to keep o2 sat >92% (3) Sepsis Present on admission. On presentation to the emergency department patient had a leukocytosis of 16,000, respiratory rate of 20 and heart rate in the 100s. I will place the patient on IV normal saline. Continue to monitor vital signs, WBC. 05/12 patient with worsening leukocytosis. Lactic acid level up to 5. 05/13 leukocytosis is improving, lactic acid trending down. Continue IV fluids. 05/14/16 Blood cultures negative to date, continue IV fluids since lactic acid elevated, continue IV Levaquin, Leukocytosis continues to improve. (4) Leukocytosis WBC 16,000 on presentation, trending down. Continue to monitor CBC with differential. Elevated likely secondary to sepsis due to COPD exacerbation/ pneumonia. 05/12 WBC trending up up to 18,000. Continue to monitor CBC with differential. 05/13 leukocytosis trending down. Continue IV antibiotics as above. 05/14/16 Continues to improve, down to 10,000 (5) Respiratory distress Due to COPD exacerbation/pneumonia. Cough and wheezing much improved prior to discharge. (6) Hyperglycemia Plan: Likely steroid-induced. Blood glucose on presentation was 88, now 123. Check hemoglobin A1c pending. Continue SSI with insulin Novolog. (7) Chronic back pain Plan: Patient has history of neck and back surgery. Complains of back pain which is chronic. Continue Tylenol and Lortab as needed. Pt Condition on Discharge: Stable Discharge Disposition: Discharge Home Discharge Time: <= 30 minutes Discharge Instructions DIET: Follow Instructions for: As Tolerated, No Restrictions Activities you can perform: Regular-No Restrictions Activities to Avoid: Prolonged Standing, Strenuous Activity Follow up Referrals: PCP Follow-up - 1 Week Pulmonology - 2 Weeks with Jimmy Reilly MD New Medications: Levofloxacin (Levofloxacin) 500 Mg Tab 500 MG PO DAILY Infection #10 Ref 0 TAB Nicotine Patch (Nicoderm CQ Patch) 21 Mg/24 Hr Patch 21 MG T-DERMAL DAILY Smoking Cessation #30 Ref 0 PATCH Prednisone (Prednisone) 20 Mg Tab 40 MG PO DIRECTED Shortness of Breath #10 Ref 0 TAB Tiotropium Inh (Spiriva Respimat Inh) 1.25 Mcg/Act Aero 2 PUFF INH DAILY 1.25 mcg = 1 inhalation Asthma Management #1 Ref 0 INHALER Alprazolam (Xanax) 0.5 Mg Tab 0.5 MG PO Q8H PRN MODERATE TO SEVERE ANXIETY #30 TAB Benzonatate (Tessalon Perles) 100 Mg Cap 100 MG PO TID PRN COUGH #30 CAP Ipratropium-Albuterol Neb (Duoneb) 0.5-2.5 Mg/3 Ml Neb 1 AMPULE NEB Q2HR NEB PRN wheezing #1 BOX Dylan Tomlinson MD May 15, 2016 12:36
[2016-05-15] MEDS ORDERED: HYDR-3516 PO (12:52)
[2016-05-15 17:03] LABS: HEMOGLOBIN A1a 1.2 %; HEMOGLOBIN A1b 0.8 %; HEMOGLOBIN Ao 85.2 %; HEMOGLOBIN F 1.4 %; HEMOGLOBIN LA1C 1.9 %; HEMOGLOBIN P3 3.7 %
== END 2016-05-15 14:38 | disposition home or self-care (01) | DRG 871 ==
LOC: NEPC 17:15 → NEDA 22:27 → N07B 05-11 01:13
PROVIDERS: ADMIT Hospitalist; ATTEND Hospitalist
DX: A41.9 Sepsis, unspecified organism (principal); J18.9 Pneumonia, unspecified organism; J44.1 Chronic obstructive pulmonary disease with (acute) exacerbation; I10 Essential (primary) hypertension; G89.29 Other chronic pain; M19.90 Unspecified osteoarthritis, unspecified site; R73.9 Hyperglycemia, unspecified; T38.0X5A Adverse effect of glucocorticoids and synthetic analogues, initial encounter; M54.5 Low back pain; F17.200 Nicotine dependence, unspecified, uncomplicated; M54.2 Cervicalgia; Z86.73 Personal history of transient ischemic attack (TIA), and cerebral infarction without residual deficits; J45.909 Unspecified asthma, uncomplicated
CPT/HCPCS: 36600; 71010; 71275; 80048; 80053; 80202; 80301; 82550; 82552; 82805; 83036; 83605; 83735; 83880; 84100; 84484; 85007; 85025; 85027; 87040; 87070; 87205; 87449; 87804; 94640; 94664; 94667; 94668; 96374; 96375; G0479; J1650; J1956; J2060; J2920; J2930; J3370; J7030; J7050; Q9967

== ENCOUNTER 2017-03-09 16:23 | Emergency (ER) | payer OTHER ==
[~2017-03-09] VITALS: Ht 167.6 cm; Wt 65.0 kg
[~2017-03-09 16:23] MED LIST changes: -ALBU6.7H INH; +ALPR.5 PO; +BENZ100 PO; -DUONI NEB; -GABA100C4 PO; +HYDR-3516 PO; -IBUP800T23 PO; +IPRASOL NEB; +LEVO500T3 PO; -LEVO750T33 PO; -MELO15 PO; -METH4TAB6 PO; +NICO21DI6 T-DERMAL; +PRED20 PO; +TIOT1AER2 INH
[2017-03-09 16:25] VITALS: BP 122/90; PULSE 84; RESP 13; TEMP 97.7; O2SAT 98
[2017-03-09] MEDS ORDERED: ONDANSETRON HCL 4 MG/2 ML VIAL IV PUSH ONE (17:15)
[2017-03-09] MEDS ORDERED: KETOROLAC TROMETHAMINE 30 MG/ML (IVP) VIAL IV PUSH ONE (17:15)
[2017-03-09] MEDS ORDERED: MORPHINE SULFATE 4 MG/ML INJ IV PUSH ONE (17:15)
[2017-03-09] MEDS ORDERED: SODIUM CHLORIDE 0.9% FLUSH 10 ML FLUSH IVF PRN (17:15)
[2017-03-09 17:18] LABS: BILIRUBIN, URINE NEG (NEG); BLOOD, URINE NEG (NEG); GLUCOSE,URINE NEG (NEG); KETONE, URINE NEG (NEG); NITRITE,URINE NEG (NEG); PH, URINE 5.5 (5.0-8.5); SQUAMOUS EPITHELIAL CELL URINE <1 /hpf (0-5); URINE COLOR COLORLESS (YELLW/STRAW); URINE LEUKOCYTE ESTERASE NEG (NEG)
--- NOTE | 2017-03-09 17:20 | PD ---
HPI Chief Complaint: Flank/Kidney Pain Time Seen by Provider: 17:07 Travel History International Travel<30 days: No Contact w/Intl Traveler<30days: No Traveled to known affect area: No History of Present Illness HPI c/o rt flank pain, onset when she got up from chair, sharp, nonrad, no hematuria , no leg numbmness/weakness but worsens with activity particularly twisting, 8/ 10. pcp: ele[facility] pshx:neck and lumbar disc surgery, appendectomy and partial hyst pmhx:elev triglycerides, copd, htn PFSH Past Medical History Arthritis: Yes Asthma: Yes Autoimmune Disease: No Blood Disorders: No Anxiety: No Depression: No Heart Rhythm Problems: No Cancer: No Cardiovascular Problems: No High Cholesterol: No Chest Pain: No Congestive Heart Failure: No COPD: No Cerebrovascular Accident: Yes Diabetes: No Diminished Hearing: No Endocrine: No GERD: No Genitourinary: Yes Hiatal Hernia: No Immune Disorder: No Kidney Stones: No Musculoskeletal: Yes (CHRONIC BACK PAIN) Neurologic: Yes Psychiatric: No Reproductive: No Respiratory: Yes Migraines: No Renal Failure: No Seizures: No Sleep Apnea: No Thyroid Disease: No Ulcer: No Menopausal: Yes Past Surgical History Abdominal Surgery: No Appendectomy: Yes Cardiac Surgery: No Ear Surgery: No Endocrine Surgery: No Eye Surgery: No Genitourinary Surgery: No Gynecologic Surgery: No Hysterectomy: Yes Oral Surgery: No Thoracic Surgery: No Other Surgery: Yes (neck surgery AND BACK SURGERY) Social History Alcohol Use: Yes (SOCIAL) Tobacco Use: Yes (PPD) Substance Use: No Allergies-Medications (Allergen,Severity, Reaction): Coded Allergies: No Known Allergies (Verified , 03/09/17) Reported Meds & Prescriptions Reported Meds & Active Scripts Active Baclofen 10 Mg Tab 10 Mg PO TID Ultram (Tramadol HCl) 50 Mg Tab 50 Mg PO Q6H PRN Reported Triamterene-Hydrochlorothiazide 37.5-25 Mg Cap 1 Cap PO DAILY Estradiol 0.5 Mg Tab 0.5 Mg PO DAILY Review of Systems Except as stated in HPI: all other systems reviewed are Neg General / Constitutional: No: Fever Eyes: No: Visual changes HENT: No: Headaches Cardiovascular: No: Chest Pain or Discomfort Respiratory: No: Shortness of Breath Gastrointestinal: No: Abdominal Pain Genitourinary: Positive: Flank Pain Musculoskeletal: Positive: Pain Skin: No Rash Neurologic: No: Weakness Psychiatric: No: Depression Endocrine: No: Polydipsia Hematologic/Lymphatic: No: Easy Bruising Physical Exam Narrative GENERAL: SKIN: Warm and dry. HEAD: Atraumatic. Normocephalic. EYES: Pupils equal and round. No scleral icterus. No injection or drainage. ENT: No nasal bleeding or discharge. Mucous membranes pink and moist. NECK: Trachea midline. No JVD. CARDIOVASCULAR: Regular rate and rhythm. RESPIRATORY: No accessory muscle use. Clear to auscultation. Breath sounds equal bilaterally. GASTROINTESTINAL: Abdomen soft, , nondistended. ?rlq ttp? vs back spasm (lower right iliolumbaris spasm noted)...no rebound/rigidity/guarding MUSCULOSKELETAL: Extremities without clubbing, cyanosis, or edema. No obvious deformities. NEUROLOGICAL: Awake and alert. No obvious cranial nerve deficits. Motor grossly within normal limits. Five out of 5 muscle strength in the arms and legs. Normal speech. PSYCHIATRIC: Appropriate mood and affect; insight and judgment normal. Data Data Last Documented VS Vital Signs Date Time Temp Pulse Resp B/P (MAP) Pulse Ox O2 Delivery O2 Flow Rate FiO2 03/09/17 18:55 03/09/17 17:05 20 03/09/17 16:25 97.7 84 98 Orders Orders Urinalysis - C+S If Indicated (03/09/17 16:45) Complete Blood Count With Diff (03/09/17 17:12) Comprehensive Metabolic Panel (03/09/17 17:12) Ed Urine Pregnancytest Poc (03/09/17 17:12) Ct Abd/Pel W/O Iv Contrast (03/09/17 17:12) Ecg Monitoring (03/09/17 17:12) Iv Access Insert/Monitor (03/09/17 17:12) Ketorolac Inj (Toradol Inj) (03/09/17 17:15) Morphine Inj (Morphine Inj) (03/09/17 17:15) Ondansetron Inj (Zofran Inj) (03/09/17 17:15) Sodium Chloride 0.9% Flush (Ns Flush) (03/09/17 17:15) Orphenadrine Inj (Norflex Inj) (03/09/17 18:15) Ed Discharge Order (10/27/17 18:43) Labs Laboratory Tests Test 03/09/17 16:51 03/09/17 17:20 Urine Color COLORLESS Urine Turbidity CLEAR Urine pH 5.5 Urine Specific [place] 1.001 Urine Protein NEG mg/dL Urine Glucose (UA) NEG mg/dL Urine Ketones NEG mg/dL Urine Occult Blood NEG Urine Nitrite NEG Urine Bilirubin NEG Urine Urobilinogen LESS THAN 2.0 MG/DL Urine Leukocyte Esterase NEG Urine Squamous Epithelial Cells <1 /hpf Microscopic Urinalysis Comment CULT NOT INDICATED White Blood Count 7.4 TH/MM3 Red Blood Count 4.48 MIL/MM3 Hemoglobin 13.8 GM/DL Hematocrit 40.8 % Mean Corpuscular Volume 91.0 FL Mean Corpuscular Hemoglobin 30.7 PG Mean Corpuscular Hemoglobin Concent 33.7 % Red Cell Distribution Width 12.9 % Platelet Count 369 TH/MM3 Mean Platelet Volume 7.1 FL Neutrophils (%) (Auto) 57.4 % Lymphocytes (%) (Auto) 32.3 % Monocytes (%) (Auto) 8.6 % Eosinophils (%) (Auto) 1.3 % Basophils (%) (Auto) 0.4 % Neutrophils # (Auto) 4.2 TH/MM3 Lymphocytes # (Auto) 2.4 TH/MM3 Monocytes # (Auto) 0.6 TH/MM3 Eosinophils # (Auto) 0.1 TH/MM3 Basophils # (Auto) 0.0 TH/MM3 CBC Comment DIFF FINAL Differential Comment Blood Urea Nitrogen 10 MG/DL Creatinine 0.83 MG/DL Random Glucose 70 MG/DL Total Protein 7.7 GM/DL Albumin 4.0 GM/DL Calcium Level 9.3 MG/DL Alkaline Phosphatase 119 U/L Aspartate Amino Transf (AST/SGOT) 33 U/L Alanine Aminotransferase (ALT/SGPT) 38 U/L Total Bilirubin 0.3 MG/DL Sodium Level 139 MEQ/L Potassium Level 3.8 MEQ/L Chloride Level 103 MEQ/L Carbon Dioxide Level 24.4 MEQ/L Anion Gap 12 MEQ/L Estimat Glomerular Filtration Rate 72 ML/MIN [facility] Medical Decision Making Medical Screen Exam Complete: Yes Emergency Medical Condition: Yes Medical Record Reviewed: Yes Differential Diagnosis pancreatitis v liver v pyelo v kidney stones v muscle spasm Narrative Course patient was evaluated, no e/o uti, no e/o pancreatitis, ct neg for kidney stones , no acute lumbar disk injury Diagnosis Primary Impression: Muscle spasm of back Patient Instructions: General Instructions, Muscle Spasm (ED) Scripts Baclofen (Baclofen) 10 Mg Tab 10 MG PO TID for Muscle Spasm, #30 TAB 0 Refills Prov: Mathew Ayala MD 03/09/17 Tramadol (Ultram) 50 Mg Tab 50 MG PO Q6H Y for PAIN, #20 TAB 0 Refills Prov: Mathew Ayala MD 03/09/17 Disposition: 01 DISCHARGE HOME Condition: Stable Mathew Ayala MD Mar 09, 2017 17:20
[2017-03-09] MEDS ORDERED: TRIA37.53 PO (17:46)
[2017-03-09] MEDS ORDERED: ESTR0.5T PO (17:46)
[2017-03-09 17:55] LABS: AUTOMATED NEUTROPHIL # 4.2 TH/MM3 (1.8-7.7); BASOPHIL % 0.4 % (0.0-2.0); EOSINOPHIL # 0.1 TH/MM3 (0-0.4); EOSINOPHIL % 1.3 % (0.0-4.0); HEMATOCRIT 40.8 % (35.0-46.0); HEMOGLOBIN 13.8 GM/DL (11.6-15.3); LYMPH % 32.3 % (9.0-44.0); LYMPHOCYTE # 2.4 TH/MM3 (1.0-4.8); MEAN CORPUSCULAR HEMOGLOBIN 30.7 PG (27.0-34.0); MEAN CORPUSCULAR HGB CONC 33.7 % (32.0-36.0); MEAN PLATELET VOLUME 7.1 FL (7.0-11.0); MONO % 8.6 % (0.0-8.0); MONOCYTE # 0.6 TH/MM3 (0-0.9); NEUT % 57.4 % (16.0-70.0); PLATELET COUNT 369 TH/MM3 (150-450); RED BLOOD COUNT 4.48 MIL/MM3 (4.00-5.30); RED CELL DISTRIBUTION WIDTH 12.9 % (11.6-17.2); WHITE BLOOD COUNT 7.4 TH/MM3 (4.0-11.0)
[2017-03-09] MEDS ORDERED: ORPHENADRINE INJ 60 MG/2 ML AMP IM ONE (18:15)
--- NOTE | 2017-03-09 18:26 | RADRPT ---
EXAM DATE/TIME: 03/09/2017 17:42 [facility] COMPARISON: No previous studies available for comparison. INDICATIONS : Right flank pain. ORAL CONTRAST: No oral contrast ingested. RADIATION DOSE: 9.96 CTDIvol (mGy) MEDICAL HISTORY : Hypertension. Stroke SURGICAL HISTORY : Appendectomy. Hysterectomy. ENCOUNTER: Initial ACUITY: 1 day PAIN SCALE: 5/10 LOCATION: Right flank TECHNIQUE: Volumetric scanning of the abdomen and pelvis was performed. Using automated exposure control and ad justment of the mA and/or kV according to patient size, radiation dose was kept as low as reasonably achievable to obtain optimal diagnostic quality images. DICOM format image data is available electro nically for review and comparison. FINDINGS: LOWER LUNGS: The visualized lower lungs are clear. LIVER: Homogeneous density without lesion. There is no dilation of the biliary tree. No calcified gallston es. SPLEEN: Normal size without lesion. PANCREAS: Within normal limits. KIDNEYS: Normal in size and shape. There is no mass, stone, or hydronephrosis. ADRENAL GLANDS: Within normal limits. VASCULAR: There is no aortic aneurysm. BOWEL/MESENTERY: The stomach, small bowel, and colon demonstrate no acute abnormality. There is no free intraperitone al air or fluid. ABDOMINAL WALL: Within normal limits. RETROPERITONEUM: There is no lymphadenopathy. BLADDER: No wall thickening or mass. REPRODUCTIVE: Within normal limits. INGUINAL: There is no lymphadenopathy or hernia. MUSCULOSKELETAL: Within normal limits for patient age. CONCLUSION: 1. No acute findings. Specifically no obstructive uropathy. Jarvis Garcia MD on March 09, 2017 at 18:20 Board Certified Radiologist. This report was verified electronically.
[2017-03-09 18:28] LABS: AST (GOT) 33 U/L (15-37); BICARBONATE 24.4 MEQ/L (21.0-32.0); BLOOD UREA NITROGEN 10 MG/DL (7-18); CALCIUM 9.3 MG/DL (8.5-10.1); CREATININE 0.83 MG/DL (0.50-1.00); GLOMERULAR FILTRATION RATE 72 ML/MIN (>89); GLUCOSE,RANDOM 70 MG/DL (74-106)
[2017-03-09 18:29] LABS: ALT (GPT) 38 U/L (10-53)
[2017-03-09] MEDS ORDERED: TRAM50 PO (18:37)
[2017-03-09] MEDS ORDERED: BACL10TA PO (18:37)
[2017-03-09 19:18] LABS: ALKALINE PHOSPHATASE 119 U/L (45-117); CHLORIDE 103 MEQ/L (98-107)
[2017-03-09 19:22] LABS: SODIUM (NA) 139 MEQ/L (136-145); TOTAL BILIRUBIN ADULT 0.3 MG/DL (0.2-1.0); TOTAL PROTEIN 7.7 GM/DL (6.4-8.2)
== END 2017-03-09 19:26 | disposition home or self-care (01) ==
LOC: NEPD 16:23
DX: M62.830 Muscle spasm of back (principal); J44.9 Chronic obstructive pulmonary disease, unspecified; I10 Essential (primary) hypertension; M19.90 Unspecified osteoarthritis, unspecified site; F17.200 Nicotine dependence, unspecified, uncomplicated; Z86.73 Personal history of transient ischemic attack (TIA), and cerebral infarction without residual deficits; Z79.899 Other long term (current) drug therapy
CPT/HCPCS: 74176; 80053; 81001; 85025; 96372; 96374; 96375; 99285; J1885; J2270; J2360; J2405